=== PATIENT | female | born 1945 | race Hispanic/Latino ===

== ENCOUNTER 2018-05-21 14:39 | Inpatient (IN) | payer BC ==
[2018-05-21 14:58] VITALS: BMI 38.2
--- NOTE | 2018-05-21 18:23 | CP.PCM.HP ---
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 MRI brain showed small acute R posterolateral basal ganglia infarct , with chronic appearing bilateral basal nuclei and chronic white matter changes , no acute intracranial hemorrhage. HD stable NAD. ROS: per HPI all other systems reviewed and negative. Present on Admission - Present on Admission Any Indicators Present on Admission: No Past Patient History - Past Medical History & Family History Past Medical History?: Yes - Past Social History Smoking Status: Never Smoked - CARDIAC Hx Hypertension: Yes - PULMONARY Hx Chronic Obstructive Pulmonary Disease (COPD): Yes - NEUROLOGICAL Hx Neurological Disorder: Yes HX Cerebrovascular Accident: Yes (9 years ago) - MUSCULOSKELETAL/RHEUMATOLOGICAL Hx Falls: No - PSYCHIATRIC Hx Substance Use: No - SURGICAL HISTORY Hx Surgeries: Yes Hx Hysterectomy: Yes Meds Allergies/Adverse Reactions: Allergies Allergy/AdvReac Type Severity Reaction Status Date / Time lactose Allergy Verified 05/17/18 10:20 Penicillins Allergy Verified 05/17/18 10:20 Physical Exam - Constitutional Additional comments: Vitals Reviewed GEN: WDWN, alert, cooperative HEENT: NCAT, PERRL, EOMI HEART: RRR, +S1S2, NO MRG LUNG: CTAB, NO WRR ABD: soft, NT, ND, No HSM, No masses EXT: normal pedal pulses NEURO: awake, alert SKIN: warm, dry PSYCH: normal mood, normal affect Assessment & Plan - Assessment and Plan (Free Text) Plan: 73 year old female PMH CVA 2008, psychosis, COPD, HTN, presents from [facility] s/p 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 MRI brain showed small acute R posterolateral basal ganglia infarct , with chronic appearing bilateral basal nuclei and chronic white matter changes , no acute intracranial hemorrhage. HD stable NAD. CVA R basal ganglia Hx CVA - pt with residual L sided facial droop - cont asa, plavix, statin - PT/OT/speech - Neuro consult Dr. Prescott HTN - continue HTN control COPD - bronchodilators as necessary VTE lovenox
[2018-05-21] MEDS ORDERED: Albuterol-Ipratrop 3 mg / 0.5 (3 ml) UD IH PRN (18:24)
[2018-05-21] MEDS ORDERED: Home Med 1 UNIT PO PRN (20:48)
[2018-05-22 06:25] LABS: HEMOGLOBIN 12.4 g/dL (12.0-16.0); MEAN CELL VOLUME 94.8 fl (81.0-99.0); MEAN CORPUSCULAR HEMOGLOBIN 31.8 pg (27.0-31.0); MEAN CORPUSCULAR HGB CONC 33.5 g/dL (33.0-37.0); RBC 3.89 Mil/uL (3.80-5.20); RED CELL DISTRIBUTION WIDTH 14.2 % (11.5-14.5); WHITE BLOOD COUNT 6.7 K/uL (4.8-10.8)
[2018-05-22] MEDS: ALPRAZOLAM 0.5 MG PO SCH ×3 (06:33→13:43)
[2018-05-22 07:06] LABS: BLOOD UREA NITROGEN 14 mg/dl (7-17); CALCIUM 9.4 mg/dL (8.4-10.2); GFR NON-AFRICAN AMERICAN > 60
[2018-05-22] MEDS: Enoxaparin 40 mg Syringe SC SCH (08:08)
[2018-05-22] MEDS: Ergocalciferol 50,000 Intl Units Cap PO SCH (08:08)
[2018-05-22] MEDS: Magnesium Oxide 400 mg Tab UD PO SCH ×2 (10:25→17:16)
[2018-05-22] MEDS: DOXEPIN HCL 50 MG PO SCH (17:16)
[2018-05-22] MEDS: HALOPERIDOL 1 MG PO SCH (17:16)
[2018-05-22] MEDS: BENZTROPINE MESYLATE 1 MG PO SCH (17:16)
[2018-05-22] MEDS ORDERED: DOXEPIN HCL 50 MG PO SCH (18:00)
--- NOTE | 2018-05-22 20:58 | CP.PCM.CON ---
History of Present Illness - History of Present Illness History of Present Illness: Dr Solano PMR consultation on Geovnana Cross, born 1945 who has been admitted to [facility] for acute inpatient rehabilitation following a right CVA with left HP. There is some mild dysarthria as well. She is left hand dominant. She had ambulated with a [place] [employer]. Review of Systems - Constitutional Constitutional: absent: Anorexia, Chills - EENT Eyes: absent: Change in Vision Ears: absent: Decreased Hearing, Ear Discharge Nose/Mouth/Throat: absent: Nasal Congestion - Cardiovascular Cardiovascular: absent: Chest Pain - Respiratory Respiratory: absent: Cough, Dyspnea - Gastrointestinal Gastrointestinal: absent: Belching, Constipation - Musculoskeletal Musculoskeletal: Abnormal Gait. absent: Back Pain - Integumentary Integumentary: absent: Bleeding Lesions - Neurological Neurological: absent: Abnormal Movements, Confusion, Dizziness Past Patient History - Past Medical History & Family History Past Medical History?: Yes - Past Social History Smoking Status: Never Smoked Alcohol: None Drugs: Denies Home Situation {Lives}: With Family (elevator) - CARDIAC Hx Hypertension: Yes - PULMONARY Hx Chronic Obstructive Pulmonary Disease (COPD): Yes - NEUROLOGICAL Hx Neurological Disorder: Yes HX Cerebrovascular Accident: Yes (9 years ago) - MUSCULOSKELETAL/RHEUMATOLOGICAL Hx Falls: Yes - PSYCHIATRIC Hx Psychosis: Yes Hx Substance Use: No - SURGICAL HISTORY Hx Surgeries: Yes Hx Hysterectomy: Yes - ANESTHESIA Hx Anesthesia: Yes Hx Anesthesia Reactions: No Meds Allergies/Adverse Reactions: Allergies Allergy/AdvReac Type Severity Reaction Status Date / Time lactose Allergy DIARRHEA Verified 05/22/18 02:24 Penicillins Allergy RASH Verified 05/22/18 02:24 - Medications Medications: Current Medications Acetaminophen (Tylenol 325mg Tab) 325 mg PO Q6 PRN PRN Reason: PAIN 1-10 Last Admin: 05/22/18 10:25 Dose: 325 mg Albuterol/Ipratropium (Duoneb 3 Mg/0.5 Mg (3 Ml) Ud) 3 ml IH RQ6 PRN PRN Reason: Shortness of Breath Alprazolam (Xanax) 0.5 mg PO DAILY PRN PRN Reason: Anxiety Aspirin (Aspirin Chewable) 81 mg PO DAILY [facility] Last Admin: 05/22/18 08:07 Dose: 81 mg Atorvastatin Calcium (Lipitor) 40 mg PO HS [facility] Last Admin: 05/21/18 23:20 Dose: 40 mg Clopidogrel Bisulfate (Plavix) 75 mg PO DAILY [facility] Last Admin: 05/22/18 08:07 Dose: 75 mg Enoxaparin Sodium (Lovenox) 40 mg SC DAILY [facility] PRN Reason: Protocol Last Admin: 05/22/18 08:08 Dose: 40 mg Ergocalciferol (Drisdol 50,000 Intl Units Cap) 1 cap PO Q7D [facility] Last Admin: 05/22/18 08:08 Dose: 1 cap Home Med (Patient's Own Medication) 3 unit PO 1800 [facility] Last Admin: 05/22/18 17:16 Dose: 3 unit Home Med (Patient's Own Medication) 4 unit PO 1800 [facility] Last Admin: 05/22/18 17:16 Dose: 4 unit Home Med (Patient's Own Medication) 2 unit PO 1800 [facility] Last Admin: 05/22/18 17:16 Dose: 2 unit Home Med (Patient's Own Medication) 3 unit PO HS@2100 [facility] Last Admin: 05/22/18 20:21 Dose: Not Given Magnesium Oxide (Mag-Ox) 400 mg PO BID [facility] Last Admin: 05/22/18 17:16 Dose: 400 mg Senna/Docusate Sodium (Senokot S 50 Mg-8.6 Mg) 2 tab PO HS [facility] Physical Exam - Constitutional Appears: Non-toxic - Head Exam Head Exam: ATRAUMATIC, NORMAL INSPECTION, NORMOCEPHALIC - Eye Exam Eye Exam: EOMI - ENT Exam ENT Exam: Mucous Membranes Moist - Respiratory Exam Respiratory Exam: NORMAL BREATHING PATTERN - Cardiovascular Exam Cardiovascular Exam: REGULAR RHYTHM - GI/Abdominal Exam GI & Abdominal Exam: Distended. absent: Firm - Extremities Exam Extremities exam: Negative for: calf tenderness - Neurological Exam Neurological exam: Alert, Oriented x3 - Skin Skin Exam: Warm Results - Vital Signs Recent Vital Signs: Last Vital Signs Temp 97.2 F L 05/22/18 20:34 Pulse 87 05/22/18 20:34 Resp 20 05/22/18 20:34 BP 145/56 L 05/22/18 20:34 Pulse Ox 98 05/22/18 20:34 - Labs Result Diagrams: 05/22/18 05:20 05/22/18 05:20 Labs: Laboratory Results - last 24 hr 05/22/18 05/22/18 05/22/18 05:20 05:20 05:20 WBC 6.7 RBC 3.89 Hgb 12.4 Hct 36.8 MCV 94.8 MCH 31.8 H MCHC 33.5 RDW 14.2 Plt Count 237 Sodium 141 Potassium 4.6 Chloride 106 Carbon Dioxide 26 Anion Gap 14 BUN 14 Creatinine 0.7 Est GFR ( Amer) > 60 Est GFR (Non-Af Amer) > 60 Random Glucose 100 Hemoglobin A1c 5.6 Calcium 9.4 Assessment & Plan - Assessment and Plan (Free Text) Assessment: 73 year old left hand dominant female following a right CVA with left HP strength is fairly well preserved and has fair coordination as well functional limitations though with ambulation and mild dysarthria PT/OT to continue to help increase functional independence Team conference for d/c planning Pain: controlled Vascular: no evidence of DVT GI: No evidence of constipation or diarrhea Patient is an excellent acute rehabilitation candidate and will have focused speech, PT, OT and recreational therapy to help facilitate a safe and appropriate d/c plan Impairment code: 01.1
[2018-05-22] MEDS ORDERED: ALPRAZOLAM 0.5 MG PO SCH ×2 (21:00)
--- NOTE | 2018-05-22 21:09 | PCM.OPOC ---
Physiatry Overall Plan of Care - Overall Plan of Care Estimated Length of Stay in Weeks: 3 Rehab Impairment: Mobility, Gait, Speech, Balance, Coordination Etiologic Diagnosis: Cerebrovascular Accident Rehab/Medical Prognosis: Fair - Anticipated Interventions Physical Therapy:: Yes Occupational Therapy:: Yes Speech Therapy:: Yes Recreational Therapy:: Yes - Therapy Goals Bed Mobility: Supervision Ambulation: Supervision Functional Positional Changes:: Supervision - Discharge Plan Discharge Destination: Home
[2018-05-22] MEDS ORDERED: Docusate-Senna 50 mg-8.6 mg Tab PO SCH (22:00)
[2018-05-23] MEDS: Magnesium Oxide 400 mg Tab UD PO SCH ×2 (08:41→17:12)
[2018-05-23] MEDS: Enoxaparin 40 mg Syringe SC SCH (08:42)
[2018-05-23] MEDS: DOXEPIN HCL 50 MG PO SCH (17:12)
[2018-05-23] MEDS: BENZTROPINE MESYLATE 1 MG PO SCH (17:12)
[2018-05-23] MEDS: HALOPERIDOL 1 MG PO SCH (17:12)
[2018-05-23] MEDS: Docusate-Senna 50 mg-8.6 mg Tab PO SCH (20:20)
[2018-05-23] MEDS ORDERED: ALPRAZOLAM 0.5 MG PO SCH (21:00)
[2018-05-24] MEDS: Enoxaparin 40 mg Syringe SC SCH (08:43)
[2018-05-24] MEDS: Magnesium Oxide 400 mg Tab UD PO SCH ×2 (08:43→17:14)
[2018-05-24] MEDS: DOXEPIN HCL 50 MG PO SCH (17:14)
[2018-05-24] MEDS: HALOPERIDOL 1 MG PO SCH (17:14)
[2018-05-24] MEDS: BENZTROPINE MESYLATE 1 MG PO SCH (17:14)
--- NOTE | 2018-05-24 18:25 | CP.PCM.PN ---
Subjective - Date & Time of Evaluation Date of Evaluation: 05/24/18 Time of Evaluation: 11:50 - Subjective Subjective: Patient seen and examined. Claimed she was doing fine. Objective - Vital Signs/Intake and Output Vital Signs (last 24 hours): Temp Pulse Resp BP Pulse Ox 97.0 F L 86 18 125/59 L 93 L 05/24/18 07:48 05/24/18 07:48 05/24/18 07:48 05/24/18 07:48 05/24/18 07:48 - Medications Medications: Current Medications Acetaminophen (Tylenol 325mg Tab) 325 mg PO Q6 PRN PRN Reason: PAIN 1-10 Last Admin: 05/24/18 07:50 Dose: 325 mg Albuterol/Ipratropium (Duoneb 3 Mg/0.5 Mg (3 Ml) Ud) 3 ml IH RQ6 PRN PRN Reason: Shortness of Breath Alprazolam (Xanax) 0.5 mg PO DAILY PRN PRN Reason: Anxiety Aspirin (Aspirin Chewable) 81 mg PO DAILY [facility] Last Admin: 05/24/18 08:43 Dose: 81 mg Atorvastatin Calcium (Lipitor) 40 mg PO HS@2100 [facility] Last Admin: 05/23/18 20:35 Dose: 40 mg Clopidogrel Bisulfate (Plavix) 75 mg PO DAILY [facility] Last Admin: 05/24/18 08:43 Dose: 75 mg Enoxaparin Sodium (Lovenox) 40 mg SC DAILY [facility] PRN Reason: Protocol Last Admin: 05/24/18 08:43 Dose: 40 mg Ergocalciferol (Drisdol 50,000 Intl Units Cap) 1 cap PO Q7D [facility] Last Admin: 05/22/18 08:08 Dose: 1 cap Home Med (Patient's Own Medication) 3 unit PO 1800 [facility] Last Admin: 05/24/18 17:14 Dose: 3 unit Home Med (Patient's Own Medication) 4 unit PO 1800 [facility] Last Admin: 05/24/18 17:14 Dose: 4 unit Home Med (Patient's Own Medication) 2 unit PO 1800 [facility] Last Admin: 05/24/18 17:14 Dose: 2 unit Home Med (Patient's Own Medication) 3 unit PO HS@2000 [facility] Magnesium Oxide (Mag-Ox) 400 mg PO BID [facility] Last Admin: 05/24/18 17:14 Dose: 400 mg Senna/Docusate Sodium (Senokot S 50 Mg-8.6 Mg) 2 tab PO HS@2100 [facility] Last Admin: 05/23/18 20:20 Dose: 2 tab - Labs Labs: 05/22/18 05:20 05/22/18 05:20 - Constitutional Appears: No Acute Distress - Head Exam Head Exam: ATRAUMATIC - Eye Exam Eye Exam: absent: Scleral icterus - ENT Exam ENT Exam: Mucous Membranes Moist - Neck Exam Neck Exam: absent: Meningismus - Respiratory Exam Respiratory Exam: absent: Rales, Rhonchi, Wheezes, Respiratory Distress - Cardiovascular Exam Cardiovascular Exam: REGULAR RHYTHM, +S1, +S2 - GI/Abdominal Exam GI & Abdominal Exam: Soft. absent: Tenderness - Rectal Exam Rectal Exam: Deferred - Neurological Exam Neurological Exam: Alert, Oriented x3 - Psychiatric Exam Psychiatric exam: Normal Affect - Skin Skin Exam: Dry, Intact Assessment and Plan - Assessment and Plan (Free Text) Assessment: 73 yo female with history of CVA, psychosis, COPD and HTN was admitted at [facility] with Acute Right Basal Ganglia Infarct. The patient was transferred to Acute Rehab for therapy with residual left facial droop. 1. Right Basal Ganglia CVA continue ASA, Plavix, statin continue PT/OT/ST Neuro consult with Dr. Prescott 2. HTN BP stable without meds 3. COPD Duoneb q 4hrs prn 4. DVT prophylaxis Lovenox 40mg SC daily
[2018-05-24] MEDS: ALPRAZOLAM 0.5 MG PO SCH (20:22)
[2018-05-24] MEDS: Docusate-Senna 50 mg-8.6 mg Tab PO SCH (20:23)
[2018-05-25 07:24] LABS: HEMOGLOBIN 12.4 g/dL (12.0-16.0); MEAN CELL VOLUME 95.1 fl (81.0-99.0); MEAN CORPUSCULAR HEMOGLOBIN 31.1 pg (27.0-31.0); MEAN CORPUSCULAR HGB CONC 32.7 g/dL (33.0-37.0); RBC 3.98 Mil/uL (3.80-5.20); RED CELL DISTRIBUTION WIDTH 13.7 % (11.5-14.5); WHITE BLOOD COUNT 6.6 K/uL (4.8-10.8)
[2018-05-25 07:51] LABS: BLOOD UREA NITROGEN 15 mg/dl (7-17); CALCIUM 9.6 mg/dL (8.4-10.2); GFR NON-AFRICAN AMERICAN > 60
[2018-05-25] MEDS: Enoxaparin 40 mg Syringe SC SCH (08:28)
[2018-05-25] MEDS: Magnesium Oxide 400 mg Tab UD PO SCH ×2 (08:29→17:33)
[2018-05-25] MEDS: DOXEPIN HCL 50 MG PO SCH (17:34)
[2018-05-25] MEDS: BENZTROPINE MESYLATE 1 MG PO SCH (17:34)
[2018-05-25] MEDS: HALOPERIDOL 1 MG PO SCH (17:35)
[2018-05-25] MEDS: ALPRAZOLAM 0.5 MG PO SCH (20:03)
[2018-05-25] MEDS: Docusate-Senna 50 mg-8.6 mg Tab PO SCH (20:04)
[2018-05-26] MEDS: Magnesium Oxide 400 mg Tab UD PO SCH ×2 (08:41→17:08)
[2018-05-26] MEDS: Enoxaparin 40 mg Syringe SC SCH (08:41)
[2018-05-26] MEDS: Magnesium Hydroxide Susp 30 ml UD PO PRN (12:28)
[2018-05-26] MEDS: HALOPERIDOL 1 MG PO SCH (17:08)
[2018-05-26] MEDS: DOXEPIN HCL 50 MG PO SCH (17:08)
[2018-05-26] MEDS: BENZTROPINE MESYLATE 1 MG PO SCH (17:08)
[2018-05-26] MEDS: Docusate-Senna 50 mg-8.6 mg Tab PO SCH (20:09)
[2018-05-26] MEDS: ALPRAZOLAM 0.5 MG PO SCH (20:09)
[2018-05-27] MEDS: Magnesium Oxide 400 mg Tab UD PO SCH ×2 (09:04→17:17)
[2018-05-27] MEDS: Enoxaparin 40 mg Syringe SC SCH (09:04)
--- NOTE | 2018-05-27 10:06 | CP.PCM.CON ---
History of Present Illness - History of Present Illness History of Present Illness: Ms. Cross is a 73 year old female PMH CVA 2008, psychosis, COPD, HTN, presents from [facility] s/p 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 MRI brain showed small acute R posterolateral basal ganglia infarct, with chronic appearing bilateral basal nuclei and chronic white matter changes, no acute intracranial hemorrhage. She was transferred to acute rehab for further therapies. Currently, she is alert, oriented complains of nausea but denies any vomiting. She is able to consume her breakfast, had a bowel movement yesterday, abdomen is non tender, normoactive. Review of Systems - Review of Systems All systems: reviewed and no additional remarkable complaints except (left side weakness, slight slurred vision) Past Patient History - Past Medical History & Family History Past Medical History?: Yes - Past Social History Smoking Status: Never Smoked Alcohol: None Drugs: Denies Home Situation {Lives}: With Family (elevator) - CARDIAC Hx Hypertension: Yes - PULMONARY Hx Chronic Obstructive Pulmonary Disease (COPD): Yes - NEUROLOGICAL Hx Neurological Disorder: Yes HX Cerebrovascular Accident: Yes (9 years ago) - MUSCULOSKELETAL/RHEUMATOLOGICAL Hx Falls: Yes - PSYCHIATRIC Hx Psychosis: Yes Hx Substance Use: No - SURGICAL HISTORY Hx Surgeries: Yes Hx Hysterectomy: Yes - ANESTHESIA Hx Anesthesia: Yes Hx Anesthesia Reactions: No Meds Allergies/Adverse Reactions: Allergies Allergy/AdvReac Type Severity Reaction Status Date / Time Penicillins Allergy RASH Verified 05/22/18 02:24 - Medications Medications: Current Medications Acetaminophen (Tylenol 325mg Tab) 325 mg PO Q6 PRN PRN Reason: PAIN 1-10 Last Admin: 05/26/18 09:22 Dose: 325 mg Albuterol/Ipratropium (Duoneb 3 Mg/0.5 Mg (3 Ml) Ud) 3 ml IH RQ6 PRN PRN Reason: Shortness of Breath Alprazolam (Xanax) 0.5 mg PO DAILY PRN PRN Reason: Anxiety Aspirin (Aspirin Chewable) 81 mg PO DAILY [facility] Last Admin: 05/27/18 09:04 Dose: 81 mg Atorvastatin Calcium (Lipitor) 40 mg PO HS@2100 [facility] Last Admin: 05/26/18 20:09 Dose: 40 mg Bisacodyl (Dulcolax) 10 mg [place] DAILY PRN PRN Reason: Constipation Clopidogrel Bisulfate (Plavix) 75 mg PO DAILY [facility] Last Admin: 05/27/18 09:06 Dose: 75 mg Enoxaparin Sodium (Lovenox) 40 mg SC DAILY [facility] PRN Reason: Protocol Last Admin: 05/27/18 09:04 Dose: 40 mg Ergocalciferol (Drisdol 50,000 Intl Units Cap) 1 cap PO Q7D [facility] Last Admin: 05/22/18 08:08 Dose: 1 cap Famotidine (Pepcid) 20 mg PO HS@2100 [facility] Last Admin: 05/26/18 20:09 Dose: 20 mg Home Med (Patient's Own Medication) 3 unit PO 1800 [facility] Last Admin: 05/26/18 17:08 Dose: 3 unit Home Med (Patient's Own Medication) 4 unit PO 1800 [facility] Last Admin: 05/26/18 17:08 Dose: 4 unit Home Med (Patient's Own Medication) 2 unit PO 1800 [facility] Last Admin: 05/26/18 17:08 Dose: 2 unit Home Med (Patient's Own Medication) 3 unit PO HS@2000 [facility] Last Admin: 05/26/18 20:09 Dose: 3 unit Magnesium Hydroxide (Milk Of Magnesia) 30 ml PO DAILY PRN PRN Reason: Constipation Last Admin: 05/26/18 12:28 Dose: 30 ml Magnesium Oxide (Mag-Ox) 400 mg PO BID [facility] Last Admin: 05/27/18 09:04 Dose: 400 mg Senna/Docusate Sodium (Senokot S 50 Mg-8.6 Mg) 2 tab PO HS@2100 [facility] Last Admin: 05/26/18 20:09 Dose: 2 tab Physical Exam - Constitutional Appears: No Acute Distress - Head Exam Head Exam: NORMAL INSPECTION - Eye Exam Pupil Exam: PERRL - ENT Exam ENT Exam: Mucous Membranes Moist, Normal Exam - Neck Exam Neck exam: Positive for: Normal Inspection - Respiratory Exam Respiratory Exam: Clear to Auscultation Bilateral, NORMAL BREATHING PATTERN - Cardiovascular Exam Cardiovascular Exam: REGULAR RHYTHM, +S1, +S2 - GI/Abdominal Exam GI & Abdominal Exam: Normal Bowel Sounds, Soft - Extremities Exam Extremities exam: Positive for: normal inspection - Back Exam Back exam: CVA tenderness (L) - Neurological Exam Neurological exam: Alert, Oriented x3 - Expanded Neurological Exam Expanded Patient oriented to: person, place, time Speech: Slurred Speech Cranial nerves: EOM's Intact: Normal, Facial Palsey w/Forehead Movement: Normal , Facial Sensation: Normal, Gag Reflex: Normal, Nystagmus: Normal, Tongue Deviation: Normal Cerebellar Function: Finger to Nose: Normal, Heel to [place]: Normal Upper motor neuron: Kel Neglect: Normal, Pronator Drift: Abnormal Left, Sensory Extinction: Normal Sensory exam: Lower Extremity 2 Point Discrimination: Normal, Lower Extremity Light Touch: Normal, Lower Extremity Pin Prick: Normal, Lower Extremity Temperature: Normal, Upper Extremity 2 Point Discrimination: Normal, Upper Extremity Light Touch: Normal, Upper Extremity Pin Prick: Normal, Upper Extremity Temperature: Normal Neuro motor strength exam: Left Upper Extremity: 3, Right Upper Extremity: 4, Left Lower Extremity: 3, Right Lower Extremity: 4 Results - Vital Signs Recent Vital Signs: Last Vital Signs Temp 96.8 F L 05/27/18 07:51 Pulse 80 05/27/18 07:51 Resp 20 05/27/18 07:51 BP 124/61 05/27/18 07:51 Pulse Ox 97 05/27/18 07:51 - Labs Result Diagrams: 05/25/18 05:30 05/25/18 05:30 Assessment & Plan (1) CVA (cerebral vascular accident) Assessment and Plan: 73 year old female PMH CVA 2008, psychosis, COPD, HTN, presents from [facility] s/p 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 MRI brain showed small acute R posterolateral basal ganglia infarct , with chronic appearing bilateral basal nuclei and chronic white matter changes , no acute intracranial hemorrhage. Case discussed with DR. Burkett, recommend the following 1. PT/ OT/ ST eval and treat 2. Continue aspirin 81 mg PO daily , plavix 75 mg PO daily 3. keep LDL < 70, lipitor 40 mg PO q HS. 4. Blood pressure, hydration, and glycemic control 5. Case management consult. Thank you Status: Chronic
--- NOTE | 2018-05-27 13:06 | PSY.TMCNF ---
Nursing - Vital Signs Vital Signs (Last 8 hours): Vital Signs 05/27/18 05/27/18 07:51 11:26 Temperature 96.8 F L 96.8 F L Pulse Rate 80 80 Respiratory 20 20 Rate Blood Pressure 124/61 124/61 O2 Sat by Pulse 97 Oximetry Pain: 0 - Precautions: Precautions: Fall Prevention - Medications/Other Issues Comment: COMPLAINING OF NAUSEA THIS MORNING,NO VOMITING. DR. COOK AWARE. - Consults Comment: DR. DUGAN, DR. GUTHRIE - Toileting Toileting: Supervision - Bladder Management Bladder Pattern: Normal Voiding Method: Toilet Bladder Management: Supervision Frequency of Accidents: 0 - Bowel Management Bowel Pattern: Constipated Comment: (+) IBS-CONTIPATION TYPE, ALREADY IN [place] AT HS AND MOM PRN Bowel Management: Supervision Frequency of Accidents: 0 - Transfers Transfers: Supervision - ADL's ADL's: Supervision - Patient/Family Teaching Comments: CARE POST CVA AND SAFETY PRECAUTIONS - Goals/Time Frame Comments: PER MULTIDISCIPLINARY CARE PLAN AND GOALS - Provider Provider: ORIANA MURON RN CRRN Physical Therapy - Bed Mobility Bed Mobility: Verbal Cues, Contact Guard - Transfers Wheelchair to Mat: Verbal Cues, Contact Guard Sit to Stand: Supervision, Verbal Cues, Contact Guard - Ambulation Level of Assistance: Supervision, Verbal Cues, Contact Guard Distance (ft.): 150 Assistive Devices: Single point cane, Rolling Walker Comment: Supervision with RW, CGA with SPC - Stair Negotiation Stairs: Level of Assistance: Verbal Cues, Contact Guard Number of Stairs: 12 Handrails: Right Stairs: Assistive Devices: Single point cane - Standing Balance Static Stand: Supervision Dynamic Stand: Contact Guard Assist - Pain Pain (assessed during therapy session): 0 - Insight/Carryover Insight/Carryover: Good - Patient/Family Education Comment: CVA recovery, safety, d/c planning - Assessment/Plan Assessment: Geovanna Cross presents with: 1) mild dysarthria characterized by imprecise articulation at the sentence level negatively impacting speech intelligibility at times; and 2) mild cognitive-linguistic deficits as evidenced by decreased short term recall and thought organization. Pt would benefit from skilled ST tx 3-5x week to improve deficits in these areas. [ End ] - Goals Timeframe: 2 weeks Goals: Sit < > supine mod I. Sit < > stand mod I with AD. Pt will ambulate 200 ft mod I with AD. Pt will ascend/descend 2 flights of stairs mod I with handrail; - Provider License Number: [id number] Occupational Therapy - Arousal/Attention/Orientation Level of Consciousness: Awake, Alert Patient Orientation: Person, Place, Time - ADL/IADL Self Feeding: Set-up Help Grooming: Set-up Help Bathing-Upper Extremity: Supervision Bathing-Lower Extremity: Supervision, Contact Guard Dressing-Upper Extremity: Supervision Dressing-Lower Extremity: Contact Guard - Sitting Balance Static Sitting: Independent without upper extremity support Dynamic Sitting: Reaches across midline, Reaches out of base of support, Reaches within base of support - Transfers Wheelchair to Bed Transfers: Contact Guard Toilet Transfers: Contact Guard Tub Transfers: Contact Guard - Wheelchair Management Level of Assistance: Supervision - Upper Extremity Status Right Upper Extremity Comment: WFLs Left Upper Extremity Comment: WFLs - Pain Pain (assessed during therapy session): 0 - Insight/Carryover Insight/Carryover: Good - Patient/Family Education Comment: CVA recovery, safety, d/c planning - Assessment/Plan Assessment: Geovanna Cross presents with: 1) mild dysarthria characterized by imprecise articulation at the sentence level negatively impacting speech intelligibility at times; and 2) mild cognitive-linguistic deficits as evidenced by decreased short term recall and thought organization. Pt would benefit from skilled ST tx 3-5x week to improve deficits in these areas. [ End ] - Goals Timeframe: 2 weeks Goals: Sit < > supine mod I. Sit < > stand mod I with AD. Pt will ambulate 200 ft mod I with AD. Pt will ascend/descend 2 flights of stairs mod I with handrail; - Provider Therapist: jared Speech Therapy - Consult Information Patient on Program: Yes Medical Diagnosis: CVA Treatment Diagnosis: mild dysarthria. mild cognitive-linguistic deficits - Assessment Memory Impairment: Mild Speech/Articulation Impairment: Mild - Plan Assessment: Geovanna Cross presents with: 1) mild dysarthria characterized by imprecise articulation at the sentence level negatively impacting speech intelligibility at times; and 2) mild cognitive-linguistic deficits as evidenced by decreased short term recall and thought organization. Pt would benefit from skilled ST tx 3-5x week to improve deficits in these areas. [ End ] Plan: Continue Speech/Language Therapy Frequency: 3-5 times per week Duration: 1 week Goals/Timeframe: As per progress note dated 05/27/18 Recommendations: Continue speech-language tx 3-5x/week. - Provider Therapist: Sabi Gross License Number: [id number] Recreational Therapy - Participation Participation: Participates in Individual and/or Group Sessions - Attendance Attendance: 3-5 times per week - Activities Leisure Activities: Cards and Games - Socialization Level of Socialization: Initiates/interacts freely with care givers and peer - Diversional Time Diversional Time: television, has word searches in room - Assessment Assessment/Plan: Geovanna Cross presents with: 1) mild dysarthria characterized by imprecise articulation at the sentence level negatively impacting speech intelligibility at times; and 2) mild cognitive-linguistic deficits as evidenced by decreased short term recall and thought organization. Pt would benefit from skilled ST tx 3-5x week to improve deficits in these areas. [ End ] - Provider Therapist: Shea Toney, [employer] #[id number] Nutrition - Current Diet Current Diet/ Supplement/ Feedings: Heart healthy diet - Appetite Percent Meal Consumed: 75-100% - Comments Comments: CARE POST CVA AND SAFETY PRECAUTIONS - Assessment/Goals/Time Frame Assessment/Goals/Time Frame: COMPLAINING OF NAUSEA THIS MORNING,NO VOMITING. DR. JOEY CODY. - Provider Provider: Latricia Rothman RD Case Management - Discharge Plan Discharge Plan: Home with significant other/family Rehabilitation Plan - Treatment Plan Treatment Plan: Physical Therapy, Occupational Therapy, Speech, Dietary, Patient /Family Education - Recommendation Recommendation: Physical Therapy, Occupational Therapy, Speech, Dietary, Patient /Family Education - Discharge Plan Discharge to: Home (Dc 2)
--- NOTE | 2018-05-27 13:52 | CP.PCM.PN ---
Subjective - Date & Time of Evaluation Date of Evaluation: 05/25/18 Time of Evaluation: 12:00 - Subjective Subjective: no acute complaints at present Objective - Vital Signs/Intake and Output Vital Signs (last 24 hours): Temp Pulse Resp BP Pulse Ox 96.8 F L 80 20 124/61 97 05/27/18 11:26 05/27/18 11:05/27/18 11:05/27/18 11:05/27/18 07:51 - Medications Medications: Current Medications Acetaminophen (Tylenol 325mg Tab) 325 mg PO Q6 PRN PRN Reason: PAIN 1-10 Last Admin: 05/26/18 09:22 Dose: 325 mg Albuterol/Ipratropium (Duoneb 3 Mg/0.5 Mg (3 Ml) Ud) 3 ml IH RQ6 PRN PRN Reason: Shortness of Breath Alprazolam (Xanax) 0.5 mg PO DAILY PRN PRN Reason: Anxiety Aspirin (Aspirin Chewable) 81 mg PO DAILY [facility] Last Admin: 05/27/18 09:04 Dose: 81 mg Atorvastatin Calcium (Lipitor) 40 mg PO HS@2100 [facility] Last Admin: 05/26/18 20:09 Dose: 40 mg Bisacodyl (Dulcolax) 10 mg [place] DAILY PRN PRN Reason: Constipation Clopidogrel Bisulfate (Plavix) 75 mg PO DAILY [facility] Last Admin: 05/27/18 09:06 Dose: 75 mg Enoxaparin Sodium (Lovenox) 40 mg SC DAILY [facility] PRN Reason: Protocol Last Admin: 05/27/18 09:04 Dose: 40 mg Ergocalciferol (Drisdol 50,000 Intl Units Cap) 1 cap PO Q7D [facility] Last Admin: 05/22/18 08:08 Dose: 1 cap Famotidine (Pepcid) 20 mg PO HS@2100 [facility] Last Admin: 05/26/18 20:09 Dose: 20 mg Home Med (Patient's Own Medication) 3 unit PO 1800 [facility] Last Admin: 05/26/18 17:08 Dose: 3 unit Home Med (Patient's Own Medication) 4 unit PO 1800 [facility] Last Admin: 05/26/18 17:08 Dose: 4 unit Home Med (Patient's Own Medication) 2 unit PO 1800 [facility] Last Admin: 05/26/18 17:08 Dose: 2 unit Home Med (Patient's Own Medication) 3 unit PO HS@1999 [facility] Last Admin: 05/26/18 20:09 Dose: 3 unit Magnesium Hydroxide (Milk Of Magnesia) 30 ml PO DAILY PRN PRN Reason: Constipation Last Admin: 05/26/18 12:28 Dose: 30 ml Magnesium Oxide (Mag-Ox) 400 mg PO BID [facility] Last Admin: 05/27/18 09:04 Dose: 400 mg Senna/Docusate Sodium (Senokot S 50 Mg-8.6 Mg) 2 tab PO HS@2099 [facility] Last Admin: 05/26/18 20:09 Dose: 2 tab - Labs Labs: 05/25/18 05:30 05/25/18 05:30 - Head Exam Head Exam: ATRAUMATIC, NORMAL INSPECTION, NORMOCEPHALIC - Eye Exam Eye Exam: EOMI, Normal appearance, PERRL Pupil Exam: NORMAL ACCOMODATION - ENT Exam ENT Exam: Mucous Membranes Moist, Normal Exam - Neck Exam Neck Exam: Normal Inspection - Respiratory Exam Respiratory Exam: Clear to Ausculation Bilateral, NORMAL BREATHING PATTERN - Cardiovascular Exam Cardiovascular Exam: REGULAR RHYTHM - GI/Abdominal Exam GI & Abdominal Exam: Soft, Normal Bowel Sounds - Rectal Exam Rectal Exam: NORMAL INSPECTION - Exam External exam: NORMAL EXTERNAL EXAM - Extremities Exam Extremities Exam: Full ROM, Normal Capillary Refill - Back Exam Back Exam: NORMAL INSPECTION - Neurological Exam Neurological Exam: Alert Neuro motor strength exam: Left Upper Extremity: 3, Right Upper Extremity: 3, Left Lower Extremity: 3, Right Lower Extremity: 3 - Psychiatric Exam Psychiatric exam: Normal Affect, Normal Mood - Skin Skin Exam: Normal Color Assessment and Plan (1) CVA (cerebral vascular accident) Assessment & Plan: covering for Dr walters, PT, OT rec and speech therapy Status: Chronic (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
--- NOTE | 2018-05-27 14:00 | CP.PCM.PN ---
Subjective - Date & Time of Evaluation Date of Evaluation: 05/27/18 Time of Evaluation: 12:10 - Subjective Subjective: no acute neck or back pain, feels she is getting better Objective - Vital Signs/Intake and Output Vital Signs (last 24 hours): Temp Pulse Resp BP Pulse Ox 96.8 F L 80 20 124/61 97 05/27/18 11:26 05/27/18 11:26 05/27/18 11:05/27/18 11:05/27/18 07:51 - Medications Medications: Current Medications Acetaminophen (Tylenol 325mg Tab) 325 mg PO Q6 PRN PRN Reason: PAIN 1-10 Last Admin: 05/26/18 09:22 Dose: 325 mg Albuterol/Ipratropium (Duoneb 3 Mg/0.5 Mg (3 Ml) Ud) 3 ml IH RQ6 PRN PRN Reason: Shortness of Breath Alprazolam (Xanax) 0.5 mg PO DAILY PRN PRN Reason: Anxiety Aspirin (Aspirin Chewable) 81 mg PO DAILY [facility] Last Admin: 05/27/18 09:04 Dose: 81 mg Atorvastatin Calcium (Lipitor) 40 mg PO HS@2100 [facility] Last Admin: 05/26/18 20:09 Dose: 40 mg Bisacodyl (Dulcolax) 10 mg [place] DAILY PRN PRN Reason: Constipation Clopidogrel Bisulfate (Plavix) 75 mg PO DAILY [facility] Last Admin: 05/27/18 09:06 Dose: 75 mg Enoxaparin Sodium (Lovenox) 40 mg SC DAILY [facility] PRN Reason: Protocol Last Admin: 05/27/18 09:04 Dose: 40 mg Ergocalciferol (Drisdol 50,000 Intl Units Cap) 1 cap PO Q7D [facility] Last Admin: 05/22/18 08:08 Dose: 1 cap Famotidine (Pepcid) 20 mg PO HS@2100 [facility] Last Admin: 05/26/18 20:09 Dose: 20 mg Home Med (Patient's Own Medication) 3 unit PO 1800 [facility] Last Admin: 05/26/18 17:08 Dose: 3 unit Home Med (Patient's Own Medication) 4 unit PO 1800 [facility] Last Admin: 05/26/18 17:08 Dose: 4 unit Home Med (Patient's Own Medication) 2 unit PO 1800 [facility] Last Admin: 05/26/18 17:08 Dose: 2 unit Home Med (Patient's Own Medication) 3 unit PO HS@1999 [facility] Last Admin: 05/26/18 20:09 Dose: 3 unit Magnesium Hydroxide (Milk Of Magnesia) 30 ml PO DAILY PRN PRN Reason: Constipation Last Admin: 05/26/18 12:28 Dose: 30 ml Magnesium Oxide (Mag-Ox) 400 mg PO BID [facility] Last Admin: 05/27/18 09:04 Dose: 400 mg Senna/Docusate Sodium (Senokot S 50 Mg-8.6 Mg) 2 tab PO HS@2099 [facility] Last Admin: 05/26/18 20:09 Dose: 2 tab - Labs Labs: 05/25/18 05:30 05/25/18 05:30 - Head Exam Head Exam: ATRAUMATIC, NORMAL INSPECTION, NORMOCEPHALIC - Eye Exam Eye Exam: EOMI, Normal appearance, PERRL Pupil Exam: NORMAL ACCOMODATION - ENT Exam ENT Exam: Mucous Membranes Moist, Normal Exam - Neck Exam Neck Exam: Full ROM, Normal Inspection - Respiratory Exam Respiratory Exam: Clear to Ausculation Bilateral, NORMAL BREATHING PATTERN - Cardiovascular Exam Cardiovascular Exam: REGULAR RHYTHM - GI/Abdominal Exam GI & Abdominal Exam: Soft, Normal Bowel Sounds - Rectal Exam Rectal Exam: NORMAL INSPECTION - Exam External exam: NORMAL EXTERNAL EXAM - Extremities Exam Extremities Exam: Normal Inspection - Back Exam Back Exam: NORMAL INSPECTION - Neurological Exam Neurological Exam: Alert, Awake Neuro motor strength exam: Left Upper Extremity: 3, Right Upper Extremity: 3, Left Lower Extremity: 3, Right Lower Extremity: 3 - Psychiatric Exam Psychiatric exam: Normal Affect, Normal Mood - Skin Skin Exam: Dry, Intact, Normal Color Assessment and Plan (1) CVA (cerebral vascular accident) Assessment & Plan: status post team conference, pt ot , rec therapy Dc for SET [address] waltesr CG to MIN assit . 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
--- NOTE | 2018-05-27 14:28 | CP.PCM.PN ---
Subjective - Date & Time of Evaluation Date of Evaluation: 05/27/18 Time of Evaluation: 11:00 - Subjective Subjective: Patient seen and examined at bedside. Reports some nausea but no vomiting. States she did not sleep well last night. Otherwise no new events overnight. Tolerating PT/OT well. Objective - Vital Signs/Intake and Output Vital Signs (last 24 hours): Temp Pulse Resp BP Pulse Ox 96.8 F L 80 20 124/61 97 05/27/18 07:51 05/27/18 07:51 05/27/18 07:51 05/27/18 07:51 05/27/18 07:51 - Medications Medications: Current Medications Acetaminophen (Tylenol 325mg Tab) 325 mg PO Q6 PRN PRN Reason: PAIN 1-10 Last Admin: 05/26/18 09:22 Dose: 325 mg Albuterol/Ipratropium (Duoneb 3 Mg/0.5 Mg (3 Ml) Ud) 3 ml IH RQ6 PRN PRN Reason: Shortness of Breath Alprazolam (Xanax) 0.5 mg PO DAILY PRN PRN Reason: Anxiety Aspirin (Aspirin Chewable) 81 mg PO DAILY [facility] Last Admin: 05/27/18 09:04 Dose: 81 mg Atorvastatin Calcium (Lipitor) 40 mg PO HS@2100 [facility] Last Admin: 05/26/18 20:09 Dose: 40 mg Bisacodyl (Dulcolax) 10 mg IN DAILY PRN PRN Reason: Constipation Clopidogrel Bisulfate (Plavix) 75 mg PO DAILY [facility] Last Admin: 05/27/18 09:06 Dose: 75 mg Enoxaparin Sodium (Lovenox) 40 mg SC DAILY [facility] PRN Reason: Protocol Last Admin: 05/27/18 09:04 Dose: 40 mg Ergocalciferol (Drisdol 50,000 Intl Units Cap) 1 cap PO Q7D [facility] Last Admin: 05/22/18 08:08 Dose: 1 cap Famotidine (Pepcid) 20 mg PO HS@2100 [facility] Last Admin: 05/26/18 20:09 Dose: 20 mg Home Med (Patient's Own Medication) 3 unit PO 1800 [facility] Last Admin: 05/26/18 17:08 Dose: 3 unit Home Med (Patient's Own Medication) 4 unit PO 1800 [facility] Last Admin: 05/26/18 17:08 Dose: 4 unit Home Med (Patient's Own Medication) 2 unit PO 1800 [facility] Last Admin: 05/26/18 17:08 Dose: 2 unit Home Med (Patient's Own Medication) 3 unit PO HS@2000 [facility] Last Admin: 05/26/18 20:09 Dose: 3 unit Magnesium Hydroxide (Milk Of Magnesia) 30 ml PO DAILY PRN PRN Reason: Constipation Last Admin: 05/26/18 12:28 Dose: 30 ml Magnesium Oxide (Mag-Ox) 400 mg PO BID [facility] Last Admin: 05/27/18 09:04 Dose: 400 mg Senna/Docusate Sodium (Senokot S 50 Mg-8.6 Mg) 2 tab PO HS@2100 [facility] Last Admin: 05/26/18 20:09 Dose: 2 tab - Labs Labs: 05/25/18 05:30 05/25/18 05:30 - Additional Findings Additional findings: Physical exam: Constitutional- cooperative, awake, alert Head- NCAT, PERRL Eye- PERRL, EOMI ENT- normal exam, MMM. + left facial droop, slurred speech Neck- normal inspection, supple, no JVD Respiratory- CTAB, no wheezes rales rhonchi Cardiovascular- RRR, +S1, +S2 no MRG GI/Abdominal- normal bowel sounds, soft, no mass, no hsm Skin- warm, dry Extremities Exam- 3/5 muscle strength upper and lower left extremities, 4/5 muscle strength upper and lower right extremities, no clubbing, cyanosis, or edema Neurological Exam- alert, awake, oriented Psych- normal mood, normal affect
[2018-05-27] MEDS: HALOPERIDOL 1 MG PO SCH (17:16)
[2018-05-27] MEDS: DOXEPIN HCL 50 MG PO SCH (17:17)
[2018-05-27] MEDS: BENZTROPINE MESYLATE 1 MG PO SCH (17:17)
[2018-05-27] MEDS: ALPRAZOLAM 0.5 MG PO SCH (20:36)
[2018-05-27] MEDS: Docusate-Senna 50 mg-8.6 mg Tab PO SCH (20:36)
[2018-05-28] MEDS: Enoxaparin 40 mg Syringe SC SCH (08:30)
[2018-05-28] MEDS: Magnesium Oxide 400 mg Tab UD PO SCH ×2 (08:31→17:50)
[2018-05-28 10:43] LABS: HEMOGLOBIN 12.2 g/dL (12.0-16.0); MEAN CELL VOLUME 94.5 fl (81.0-99.0); MEAN CORPUSCULAR HEMOGLOBIN 31.4 pg (27.0-31.0); MEAN CORPUSCULAR HGB CONC 33.2 g/dL (33.0-37.0); RBC 3.88 Mil/uL (3.80-5.20); WHITE BLOOD COUNT 8.8 K/uL (4.8-10.8)
[2018-05-28 10:52] LABS: BLOOD UREA NITROGEN 14 mg/dl (7-17); CALCIUM 9.4 mg/dL (8.4-10.2); GFR NON-AFRICAN AMERICAN > 60
[2018-05-28] MEDS: HALOPERIDOL 1 MG PO SCH (17:49)
[2018-05-28] MEDS: DOXEPIN HCL 50 MG PO SCH (17:50)
[2018-05-28] MEDS: BENZTROPINE MESYLATE 1 MG PO SCH (17:50)
[2018-05-28] MEDS: ALPRAZOLAM 0.5 MG PO SCH (20:11)
[2018-05-28] MEDS: Docusate-Senna 50 mg-8.6 mg Tab PO SCH (20:12)
[2018-05-29] MEDS: Enoxaparin 40 mg Syringe SC SCH (08:07)
[2018-05-29] MEDS: Ergocalciferol 50,000 Intl Units Cap PO SCH (08:07)
[2018-05-29] MEDS: Magnesium Oxide 400 mg Tab UD PO SCH ×2 (08:08→17:56)
--- NOTE | 2018-05-29 09:23 | CP.PCM.PN ---
Subjective - Date & Time of Evaluation Date of Evaluation: 05/29/18 Time of Evaluation: 09:21 - Subjective Subjective: Ms. Cross was seen and examined at the bedside. She is alert oriented with episode of forgetfulness. She is aware of her chair alarm. She denies any headache, dizziness, lightheadedness, nausea, or vomiting. She is able to feed herself, follow simple commands. There were no untoward events overnight. Objective - Vital Signs/Intake and Output Vital Signs (last 24 hours): Temp Pulse Resp BP Pulse Ox 97.9 F 88 20 122/70 97 05/29/18 08:25 05/29/18 08:25 05/29/18 08:25 05/29/18 08:25 05/29/18 08:25 - Medications Medications: Current Medications Acetaminophen (Tylenol 325mg Tab) 325 mg PO Q6 PRN PRN Reason: PAIN 1-10 Last Admin: 05/27/18 17:16 Dose: 325 mg Albuterol/Ipratropium (Duoneb 3 Mg/0.5 Mg (3 Ml) Ud) 3 ml IH RQ6 PRN PRN Reason: Shortness of Breath Alprazolam (Xanax) 0.5 mg PO DAILY PRN PRN Reason: Anxiety Aspirin (Aspirin Chewable) 81 mg PO DAILY [facility] Last Admin: 05/29/18 08:08 Dose: 81 mg Atorvastatin Calcium (Lipitor) 40 mg PO HS@2100 [facility] Last Admin: 05/28/18 20:12 Dose: 40 mg Bisacodyl (Dulcolax) 10 mg [place] DAILY PRN PRN Reason: Constipation Clopidogrel Bisulfate (Plavix) 75 mg PO DAILY [facility] Last Admin: 05/29/18 08:07 Dose: 75 mg Enoxaparin Sodium (Lovenox) 40 mg SC DAILY [facility] PRN Reason: Protocol Last Admin: 05/29/18 08:07 Dose: 40 mg Ergocalciferol (Drisdol 50,000 Intl Units Cap) 1 cap PO Q7D [facility] Last Admin: 05/29/18 08:07 Dose: 1 cap Famotidine (Pepcid) 20 mg PO HS@2100 [facility] Last Admin: 05/28/18 20:12 Dose: 20 mg Home Med (Patient's Own Medication) 3 unit PO 1800 [facility] Last Admin: 05/28/18 17:50 Dose: 3 unit Home Med (Patient's Own Medication) 4 unit PO 1800 [facility] Last Admin: 05/28/18 17:49 Dose: 4 unit Home Med (Patient's Own Medication) 2 unit PO 1800 [facility] Last Admin: 05/28/18 17:50 Dose: 2 unit Home Med (Patient's Own Medication) 3 unit PO HS@2000 [facility] Last Admin: 05/28/18 20:11 Dose: 3 unit Magnesium Hydroxide (Milk Of Magnesia) 30 ml PO DAILY PRN PRN Reason: Constipation Last Admin: 05/26/18 12:28 Dose: 30 ml Magnesium Oxide (Mag-Ox) 400 mg PO BID [facility] Last Admin: 05/29/18 08:08 Dose: 400 mg Ondansetron HCl (Zofran Odt) 4 mg PO Q8H PRN PRN Reason: Nausea/Vomiting Senna/Docusate Sodium (Senokot S 50 Mg-8.6 Mg) 2 tab PO HS@2100 [facility] Last Admin: 05/28/18 20:12 Dose: 2 tab - Labs Labs: 05/28/18 10:30 05/28/18 10:30 - Constitutional Appears: No Acute Distress - Head Exam Head Exam: NORMAL INSPECTION - Eye Exam Pupil Exam: PERRL - Neurological Exam Neurological Exam: Alert, Awake Neuro motor strength exam: Left Upper Extremity: 3, Right Upper Extremity: 4, Left Lower Extremity: 3, Right Lower Extremity: 4 Additional comments: neurological unchanged from previous examination. Assessment and Plan (1) CVA (cerebral vascular accident) Assessment & Plan: Case discussed with Dr. Burkett, continue all current medical, physical, occupational, and speech therapies. Recommend hydration, blood pressure and glycemic control, cognitive therapy. Status: Chronic
--- NOTE | 2018-05-29 14:18 | CP.PCM.PN ---
Subjective - Date & Time of Evaluation Date of Evaluation: 05/29/18 Time of Evaluation: 10:00 - Subjective Subjective: no acute complaints at present Objective - Vital Signs/Intake and Output Vital Signs (last 24 hours): Temp Pulse Resp BP Pulse Ox 97.9 F 87 20 122/70 97 05/29/18 08:25 05/29/18 08:43 05/29/18 08:25 05/29/18 08:25 05/29/18 08:25 - Medications Medications: Current Medications Acetaminophen (Tylenol 325mg Tab) 325 mg PO Q6 PRN PRN Reason: PAIN 1-10 Last Admin: 05/27/18 17:16 Dose: 325 mg Albuterol/Ipratropium (Duoneb 3 Mg/0.5 Mg (3 Ml) Ud) 3 ml IH RQ6 PRN PRN Reason: Shortness of Breath Alprazolam (Xanax) 0.5 mg PO DAILY PRN PRN Reason: Anxiety Aspirin (Aspirin Chewable) 81 mg PO DAILY [facility] Last Admin: 05/29/18 08:08 Dose: 81 mg Atorvastatin Calcium (Lipitor) 40 mg PO HS@2100 [facility] Last Admin: 05/28/18 20:12 Dose: 40 mg Bisacodyl (Dulcolax) 10 mg [place] DAILY PRN PRN Reason: Constipation Clopidogrel Bisulfate (Plavix) 75 mg PO DAILY [facility] Last Admin: 05/29/18 08:07 Dose: 75 mg Enoxaparin Sodium (Lovenox) 40 mg SC DAILY [facility] PRN Reason: Protocol Last Admin: 05/29/18 08:07 Dose: 40 mg Ergocalciferol (Drisdol 50,000 Intl Units Cap) 1 cap PO Q7D [facility] Last Admin: 05/29/18 08:07 Dose: 1 cap Famotidine (Pepcid) 20 mg PO HS@2100 [facility] Last Admin: 05/28/18 20:12 Dose: 20 mg Home Med (Patient's Own Medication) 3 unit PO 1800 [facility] Last Admin: 05/28/18 17:50 Dose: 3 unit Home Med (Patient's Own Medication) 4 unit PO 1800 [facility] Last Admin: 05/28/18 17:49 Dose: 4 unit Home Med (Patient's Own Medication) 2 unit PO 1800 [facility] Last Admin: 05/28/18 17:50 Dose: 2 unit Home Med (Patient's Own Medication) 3 unit PO HS@1999 [facility] Last Admin: 05/28/18 20:11 Dose: 3 unit Magnesium Hydroxide (Milk Of Magnesia) 30 ml PO DAILY PRN PRN Reason: Constipation Last Admin: 05/26/18 12:28 Dose: 30 ml Magnesium Oxide (Mag-Ox) 400 mg PO BID [facility] Last Admin: 05/29/18 08:08 Dose: 400 mg Ondansetron HCl (Zofran Odt) 4 mg PO Q8H PRN PRN Reason: Nausea/Vomiting Senna/Docusate Sodium (Senokot S 50 Mg-8.6 Mg) 2 tab PO HS@2100 [facility] Last Admin: 05/28/18 20:12 Dose: 2 tab - Labs Labs: 05/28/18 10:30 05/28/18 10:30 - Head Exam Head Exam: ATRAUMATIC, NORMAL INSPECTION, NORMOCEPHALIC - Eye Exam Eye Exam: EOMI, Normal appearance, PERRL Pupil Exam: NORMAL ACCOMODATION - ENT Exam ENT Exam: Mucous Membranes Moist, Normal Exam - Neck Exam Neck Exam: Full ROM, Normal Inspection - Respiratory Exam Respiratory Exam: NORMAL BREATHING PATTERN - Cardiovascular Exam Cardiovascular Exam: REGULAR RHYTHM - GI/Abdominal Exam GI & Abdominal Exam: Soft, Normal Bowel Sounds - Rectal Exam Rectal Exam: NORMAL INSPECTION - Exam External exam: NORMAL EXTERNAL EXAM - Extremities Exam Extremities Exam: Full ROM, Normal Capillary Refill, Normal Inspection - Back Exam Back Exam: NORMAL INSPECTION - Neurological Exam Neurological Exam: Alert, Awake Neuro motor strength exam: Left Upper Extremity: 3, Right Upper Extremity: 3, Left Lower Extremity: 3, Right Lower Extremity: 3 - Psychiatric Exam Psychiatric exam: Normal Affect, Normal Mood - Skin Skin Exam: Dry, Intact Assessment and Plan (1) CVA (cerebral vascular accident) Assessment & Plan: plan for pt, ot rec therapy may go ouside with therapy psych follow up Status: Chronic (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
--- NOTE | 2018-05-29 16:26 | CP.PCM.PN ---
Subjective - Date & Time of Evaluation Date of Evaluation: 05/29/18 Time of Evaluation: 13:20 - Subjective Subjective: Patient seen and examined. Denied any complaint. Objective - Vital Signs/Intake and Output Vital Signs (last 24 hours): Temp Pulse Resp BP Pulse Ox 97.9 F 87 20 122/70 97 05/29/18 08:25 05/29/18 08:43 05/29/18 08:25 05/29/18 08:25 05/29/18 08:25 - Medications Medications: Current Medications Acetaminophen (Tylenol 325mg Tab) 325 mg PO Q6 PRN PRN Reason: PAIN 1-10 Last Admin: 05/27/18 17:16 Dose: 325 mg Albuterol/Ipratropium (Duoneb 3 Mg/0.5 Mg (3 Ml) Ud) 3 ml IH RQ6 PRN PRN Reason: Shortness of Breath Alprazolam (Xanax) 0.5 mg PO DAILY PRN PRN Reason: Anxiety Aspirin (Aspirin Chewable) 81 mg PO DAILY [facility] Last Admin: 05/29/18 08:08 Dose: 81 mg Atorvastatin Calcium (Lipitor) 40 mg PO HS@2100 [facility] Last Admin: 05/28/18 20:12 Dose: 40 mg Bisacodyl (Dulcolax) 10 mg [place] DAILY PRN PRN Reason: Constipation Clopidogrel Bisulfate (Plavix) 75 mg PO DAILY [facility] Last Admin: 05/29/18 08:07 Dose: 75 mg Enoxaparin Sodium (Lovenox) 40 mg [place] DAILY [facility] PRN Reason: Protocol Last Admin: 05/29/18 08:07 Dose: 40 mg Ergocalciferol (Drisdol 50,000 Intl Units Cap) 1 cap PO Q7D [facility] Last Admin: 05/29/18 08:07 Dose: 1 cap Famotidine (Pepcid) 20 mg PO HS@2100 [facility] Last Admin: 05/28/18 20:12 Dose: 20 mg Home Med (Patient's Own Medication) 3 unit PO 1800 [facility] Last Admin: 05/28/18 17:50 Dose: 3 unit Home Med (Patient's Own Medication) 4 unit PO 1800 [facility] Last Admin: 05/28/18 17:49 Dose: 4 unit Home Med (Patient's Own Medication) 2 unit PO 1800 [facility] Last Admin: 08/28/18 17:50 Dose: 2 unit Home Med (Patient's Own Medication) 3 unit PO HS@2000 [facility] Last Admin: 05/28/18 20:11 Dose: 3 unit Magnesium Hydroxide (Milk Of Magnesia) 30 ml PO DAILY PRN PRN Reason: Constipation Last Admin: 05/26/18 12:28 Dose: 30 ml Magnesium Oxide (Mag-Ox) 400 mg PO BID [facility] Last Admin: 05/29/18 08:08 Dose: 400 mg Ondansetron HCl (Zofran Odt) 4 mg PO Q8H PRN PRN Reason: Nausea/Vomiting Senna/Docusate Sodium (Senokot S 50 Mg-8.6 Mg) 2 tab PO HS@2100 [facility] Last Admin: 05/28/18 20:12 Dose: 2 tab - Labs Labs: 05/28/18 10:30 05/28/18 10:30 - Constitutional Appears: No Acute Distress - Head Exam Head Exam: ATRAUMATIC - Eye Exam Eye Exam: absent: Scleral icterus - ENT Exam ENT Exam: Mucous Membranes Moist - Neck Exam Neck Exam: absent: Meningismus - Respiratory Exam Respiratory Exam: absent: Rales, Rhonchi, Wheezes, Respiratory Distress - Cardiovascular Exam Cardiovascular Exam: REGULAR RHYTHM, +S1, +S2 - GI/Abdominal Exam GI & Abdominal Exam: Soft. absent: Tenderness - Rectal Exam Rectal Exam: Deferred - Neurological Exam Neurological Exam: Alert, Oriented x3 - Psychiatric Exam Psychiatric exam: Normal Affect - Skin Skin Exam: Dry, Intact Assessment and Plan - Assessment and Plan (Free Text) Assessment: 73 yo female with history of CVA, psychosis, COPD and HTN was admitted at [facility]3] with Acute Right Basal Ganglia Infarct. The patient was transferred to Acute Rehab for therapy. 1. Right Basal Ganglia CVA continue ASA, Plavix, statin continue PT/OT/ST 2. HTN BP stable without meds 3. COPD Duoneb q 4hrs prn 4. DVT prophylaxis Lovenox 40mg SC daily
[2018-05-29] MEDS: BENZTROPINE MESYLATE 1 MG PO SCH (17:56)
[2018-05-29] MEDS: HALOPERIDOL 1 MG PO SCH (17:56)
[2018-05-29] MEDS: DOXEPIN HCL 50 MG PO SCH (17:56)
[2018-05-29] MEDS: ALPRAZOLAM 0.5 MG PO SCH (20:21)
[2018-05-29] MEDS: Docusate-Senna 50 mg-8.6 mg Tab PO SCH (20:23)
[2018-05-30] MEDS: Enoxaparin 40 mg Syringe SC SCH (08:27)
[2018-05-30] MEDS: Magnesium Oxide 400 mg Tab UD PO SCH ×2 (08:28→17:18)
--- NOTE | 2018-05-30 09:16 | CP.PCM.PN ---
Subjective - Date & Time of Evaluation Date of Evaluation: 05/30/18 Time of Evaluation: 09:16 - Subjective Subjective: klaudia Cross was seen and examined at the bedside. She is alert oriented with episode of forgetfulness. She is aware of her chair alarm. She denies any headache, dizziness, lightheadedness, nausea, or vomiting. She is able to feed herself, follow simple commands, and knows to verbalize her needs to staff.. She is able to ambulate to and from the bathroom with walker in a steady gait.There were no untoward events overnight Objective - Vital Signs/Intake and Output Vital Signs (last 24 hours): Temp Pulse Resp BP Pulse Ox 97.9 F 88 20 129/59 L 97 05/30/18 08:02 05/30/18 08:02 05/30/18 08:02 05/30/18 08:02 05/30/18 08:02 - Medications Medications: Current Medications Acetaminophen (Tylenol 325mg Tab) 325 mg PO Q6 PRN PRN Reason: PAIN 1-10 Last Admin: 05/30/18 08:30 Dose: 325 mg Albuterol/Ipratropium (Duoneb 3 Mg/0.5 Mg (3 Ml) Ud) 3 ml IH RQ6 PRN PRN Reason: Shortness of Breath Alprazolam (Xanax) 0.5 mg PO DAILY PRN PRN Reason: Anxiety Aspirin (Aspirin Chewable) 81 mg PO DAILY [facility] Last Admin: 05/30/18 08:29 Dose: 81 mg Atorvastatin Calcium (Lipitor) 40 mg PO HS@2100 [facility] Last Admin: 05/29/18 20:23 Dose: 40 mg Bisacodyl (Dulcolax) 10 mg [place] DAILY PRN PRN Reason: Constipation Clopidogrel Bisulfate (Plavix) 75 mg PO DAILY [facility] Last Admin: 05/30/18 08:28 Dose: 75 mg Enoxaparin Sodium (Lovenox) 40 mg SC DAILY [facility] PRN Reason: Protocol Last Admin: 05/30/18 08:27 Dose: 40 mg Ergocalciferol (Drisdol 50,000 Intl Units Cap) 1 cap PO Q7D [facility] Last Admin: 05/29/18 08:07 Dose: 1 cap Famotidine (Pepcid) 20 mg PO HS@2100 [facility] Last Admin: 05/29/18 20:23 Dose: 20 mg Home Med (Patient's Own Medication) 3 unit PO 1800 [facility] Last Admin: 05/29/18 17:56 Dose: 3 unit Home Med (Patient's Own Medication) 4 unit PO 1800 [facility] Last Admin: 05/29/18 17:56 Dose: 4 unit Home Med (Patient's Own Medication) 2 unit PO 1800 [facility] Last Admin: 05/29/18 17:56 Dose: 2 unit Home Med (Patient's Own Medication) 3 unit PO HS@2000 [facility] Last Admin: 05/29/18 20:21 Dose: 3 unit Magnesium Hydroxide (Milk Of Magnesia) 30 ml PO DAILY PRN PRN Reason: Constipation Last Admin: 05/26/18 12:28 Dose: 30 ml Magnesium Oxide (Mag-Ox) 400 mg PO BID [facility] Last Admin: 05/30/18 08:28 Dose: 400 mg Ondansetron HCl (Zofran Odt) 4 mg PO Q8H PRN PRN Reason: Nausea/Vomiting Senna/Docusate Sodium (Senokot S 50 Mg-8.6 Mg) 2 tab PO HS@2100 [facility] Last Admin: 05/29/18 20:23 Dose: 2 tab - Labs Labs: 05/28/18 10:30 05/28/18 10:30 - Constitutional Appears: No Acute Distress - Head Exam Head Exam: NORMAL INSPECTION - Eye Exam Pupil Exam: PERRL - Neurological Exam Neuro motor strength exam: Left Upper Extremity: 4, Right Upper Extremity: 5, Left Lower Extremity: 4, Right Lower Extremity: 5 Additional comments: neurological unchanged from previous examination. Assessment and Plan (1) CVA (cerebral vascular accident) Assessment & Plan: Case discussed with Dr. Burkett, continue all current medical, physical, occupational, and speech therapies. Recommend hydration, blood pressure and glycemic control, cognitive therapy. Status: Chronic
[2018-05-30] MEDS: DOXEPIN HCL 50 MG PO SCH (18:38)
[2018-05-30] MEDS: BENZTROPINE MESYLATE 1 MG PO SCH (18:42)
[2018-05-30] MEDS: HALOPERIDOL 1 MG PO SCH (19:07)
[2018-05-30] MEDS: Docusate-Senna 50 mg-8.6 mg Tab PO SCH (20:09)
[2018-05-30] MEDS: ALPRAZOLAM 0.5 MG PO SCH (20:15)
--- NOTE | 2018-05-31 07:53 | CP.PCM.CON ---
History of Present Illness - History of Present Illness History of Present Illness: Pt is a 73 year old female admitted to [facility] and referred to the film writer for evaluation. Pt reported HTN, hysterectomy, past CVA and more recent CVA according to report and psychiatric illness. Pt was unaware of her diagnosis though is on multiple psych medications and is followed by Dr. Shay in the community 4x per year. Pt denied a history of alc/sub abuse. Pt reported her past symptoms to include hallucinations, anxiety and depression. Pt denied these symptoms at this time. History positive for one inpatient psychiatric hospitalization 4 years ago. Ed/Voc: pt raised in [place], 8th grade education. Pt reported working for the [employer] for 10+ years. Social Hx; Pt lives in with her son, daughter in law and three grandchildren. She has two other children who reside in [place]. Pt reported very positive family relationships and independence prior to admission. MSE Pt alert, oriented, relevant/coherent, no psychosis at present, pt denied auditory hallucinations, pt spoke of overall comfort at present, depression and anxiety denied, no si no homicidal ideation. Pt spoke of having a stable mood at present with positive treatment provided by others. Dx: R/O Depression with psychosis R/O Schzoaffective dx plan: Continued Sup therapy Past Patient History - Past Medical History & Family History Past Medical History?: Yes - Past Social History Smoking Status: Never Smoked Alcohol: None Drugs: Denies Home Situation {Lives}: With Family (elevator) - CARDIAC Hx Hypertension: Yes - PULMONARY Hx Chronic Obstructive Pulmonary Disease (COPD): Yes - NEUROLOGICAL Hx Neurological Disorder: Yes HX Cerebrovascular Accident: Yes (9 years ago) - MUSCULOSKELETAL/RHEUMATOLOGICAL Hx Falls: Yes - PSYCHIATRIC Hx Psychosis: Yes Hx Substance Use: No - SURGICAL HISTORY Hx Surgeries: Yes Hx Hysterectomy: Yes - ANESTHESIA Hx Anesthesia: Yes Hx Anesthesia Reactions: No Meds Allergies/Adverse Reactions: Allergies Allergy/AdvReac Type Severity Reaction Status Date / Time Penicillins Allergy RASH Verified 05/22/18 02:24 - Medications Medications: Current Medications Acetaminophen (Tylenol 325mg Tab) 325 mg PO Q6 PRN PRN Reason: PAIN 1-10 Last Admin: 05/30/18 08:30 Dose: 325 mg Albuterol/Ipratropium (Duoneb 3 Mg/0.5 Mg (3 Ml) Ud) 3 ml IH RQ6 PRN PRN Reason: Shortness of Breath Alprazolam (Xanax) 0.5 mg PO DAILY PRN PRN Reason: Anxiety Aspirin (Aspirin Chewable) 81 mg PO DAILY [facility] Last Admin: 05/30/18 08:29 Dose: 81 mg Atorvastatin Calcium (Lipitor) 40 mg PO HS@2100 [facility] Last Admin: 05/30/18 20:09 Dose: 40 mg Bisacodyl (Dulcolax) 10 mg [place] DAILY PRN PRN Reason: Constipation Clopidogrel Bisulfate (Plavix) 75 mg PO DAILY [facility] Last Admin: 05/30/18 08:28 Dose: 75 mg Enoxaparin Sodium (Lovenox) 40 mg SC DAILY [facility] PRN Reason: Protocol Last Admin: 05/30/18 08:27 Dose: 40 mg Ergocalciferol (Drisdol 50,000 Intl Units Cap) 1 cap PO Q7D [facility] Last Admin: 05/29/18 08:07 Dose: 1 cap Famotidine (Pepcid) 20 mg PO HS@2100 [facility] Last Admin: 05/30/18 20:09 Dose: 20 mg Home Med (Patient's Own Medication) 3 unit PO 1800 [facility] Last Admin: 05/30/18 18:38 Dose: 3 unit Home Med (Patient's Own Medication) 4 unit PO 1800 [facility] Last Admin: 05/30/18 19:07 Dose: 4 unit Home Med (Patient's Own Medication) 2 unit PO 1800 [facility] Last Admin: 05/30/18 18:42 Dose: 2 unit Home Med (Patient's Own Medication) 3 unit PO HS@2000 [facility] Last Admin: 05/30/18 20:15 Dose: 3 unit Magnesium Hydroxide (Milk Of Magnesia) 30 ml PO DAILY PRN PRN Reason: Constipation Last Admin: 05/26/18 12:28 Dose: 30 ml Magnesium Oxide (Mag-Ox) 400 mg PO BID [facility] Last Admin: 05/30/18 17:18 Dose: 400 mg Ondansetron HCl (Zofran Odt) 4 mg PO Q8H PRN PRN Reason: Nausea/Vomiting Senna/Docusate Sodium (Senokot S 50 Mg-8.6 Mg) 2 tab PO HS@2100 [facility] Last Admin: 05/30/18 20:09 Dose: 2 tab Results - Vital Signs Recent Vital Signs: Last Vital Signs Temp 97.9 F 05/30/18 20:30 Pulse 91 H 05/30/18 20:30 Resp 20 05/30/18 20:30 BP 149/60 05/30/18 20:30 Pulse Ox 95 05/30/18 20:30 - Labs Result Diagrams: 05/28/18 10:30 05/28/18 10:30
[2018-05-31] MEDS: Enoxaparin 40 mg Syringe SC SCH (08:34)
[2018-05-31] MEDS: Magnesium Oxide 400 mg Tab UD PO SCH ×2 (08:35→16:54)
--- NOTE | 2018-05-31 09:06 | CP.PCM.PN ---
Subjective - Date & Time of Evaluation Date of Evaluation: 05/31/18 Time of Evaluation: 09:06 - Subjective Subjective: Ms. Cross was seen and examined at the bedside. She is alert oriented with episode of forgetfulness. She claims of being an active participant during therapy session. She is aware of her episode of forgetfulness, is interested in undergoing a CAG as an outpatient. She denies any headache, dizziness, lightheadedness, nausea, or vomiting. She is able to feed herself, follow simple commands, and knows to verbalize her needs to staff.. She is able to ambulate to and from the bathroom with walker in a steady gait.There were no untoward events overnight Objective - Vital Signs/Intake and Output Vital Signs (last 24 hours): Temp Pulse Resp BP Pulse Ox 97.7 F 84 20 111/60 98 05/31/18 08:31 05/31/18 08:31 05/31/18 08:31 05/31/18 08:31 05/31/18 08:31 - Medications Medications: Current Medications Acetaminophen (Tylenol 325mg Tab) 325 mg PO Q6 PRN PRN Reason: PAIN 1-10 Last Admin: 05/30/18 08:30 Dose: 325 mg Albuterol/Ipratropium (Duoneb 3 Mg/0.5 Mg (3 Ml) Ud) 3 ml IH RQ6 PRN PRN Reason: Shortness of Breath Alprazolam (Xanax) 0.5 mg PO DAILY PRN PRN Reason: Anxiety Aspirin (Aspirin Chewable) 81 mg PO DAILY [facility] Last Admin: 05/31/18 08:35 Dose: 81 mg Atorvastatin Calcium (Lipitor) 40 mg PO HS@2100 [facility] Last Admin: 05/30/18 20:09 Dose: 40 mg Bisacodyl (Dulcolax) 10 mg [place] DAILY PRN PRN Reason: Constipation Clopidogrel Bisulfate (Plavix) 75 mg PO DAILY [facility] Last Admin: 05/31/18 08:33 Dose: 75 mg Enoxaparin Sodium (Lovenox) 40 mg SC DAILY [facility] PRN Reason: Protocol Last Admin: 05/31/18 08:34 Dose: 40 mg Ergocalciferol (Drisdol 50,000 Intl Units Cap) 1 cap PO Q7D [facility] Last Admin: 05/29/18 08:07 Dose: 1 cap Famotidine (Pepcid) 20 mg PO HS@2100 [facility] Last Admin: 05/30/18 20:09 Dose: 20 mg Home Med (Patient's Own Medication) 3 unit PO 1800 [facility] Last Admin: 05/30/18 18:38 Dose: 3 unit Home Med (Patient's Own Medication) 4 unit PO 1800 [facility] Last Admin: 05/30/18 19:07 Dose: 4 unit Home Med (Patient's Own Medication) 2 unit PO 1800 [facility] Last Admin: 05/30/18 18:42 Dose: 2 unit Home Med (Patient's Own Medication) 3 unit PO HS@2000 [facility] Last Admin: 05/30/18 20:15 Dose: 3 unit Magnesium Hydroxide (Milk Of Magnesia) 30 ml PO DAILY PRN PRN Reason: Constipation Last Admin: 05/26/18 12:28 Dose: 30 ml Magnesium Oxide (Mag-Ox) 400 mg PO BID [facility] Last Admin: 05/31/18 08:35 Dose: 400 mg Ondansetron HCl (Zofran Odt) 4 mg PO Q8H PRN PRN Reason: Nausea/Vomiting Senna/Docusate Sodium (Senokot S 50 Mg-8.6 Mg) 2 tab PO HS@2100 [facility] Last Admin: 05/30/18 20:09 Dose: 2 tab - Labs Labs: 05/28/18 10:30 05/28/18 10:30 - Constitutional Appears: No Acute Distress - Head Exam Head Exam: NORMAL INSPECTION - Eye Exam Pupil Exam: PERRL - Neurological Exam Neurological Exam: Alert, Awake, Oriented x3 Neuro motor strength exam: Left Upper Extremity: 4, Right Upper Extremity: 5, Left Lower Extremity: 4, Right Lower Extremity: 5 Additional comments: neurological unchanged from previous examination. Assessment and Plan (1) CVA (cerebral vascular accident) Assessment & Plan: Case discussed with Dr. Burkett, continue all current medical, physical, occupational, and speech therapies. Recommend hydration, blood pressure and glycemic control, cognitive therapy, follow up with neurologist upon discharge . Patient agreed to follow up with DR. Burkett at [address] [place] [address]. [address] [facility] [address] tel. [phone]. Status: Chronic
[2018-05-31 09:09] LABS: HEMOGLOBIN 11.3 g/dL (12.0-16.0); MEAN CELL VOLUME 93.9 fl (81.0-99.0); MEAN CORPUSCULAR HEMOGLOBIN 31.5 pg (27.0-31.0); MEAN CORPUSCULAR HGB CONC 33.6 g/dL (33.0-37.0); RBC 3.6 Mil/uL (3.80-5.20); RED CELL DISTRIBUTION WIDTH 13.5 % (11.5-14.5); WHITE BLOOD COUNT 8.4 K/uL (4.8-10.8)
[2018-05-31 09:16] LABS: BLOOD UREA NITROGEN 16 mg/dl (7-17); CALCIUM 9.2 mg/dL (8.4-10.2); GFR NON-AFRICAN AMERICAN > 60
--- NOTE | 2018-05-31 12:47 | CP.PCM.PN ---
Subjective - Date & Time of Evaluation Date of Evaluation: 05/31/18 Time of Evaluation: 12:46 Objective - Vital Signs/Intake and Output Vital Signs (last 24 hours): Temp Pulse Resp BP Pulse Ox 98 F 84 20 111/60 98 05/31/18 09:42 05/31/18 08:31 05/31/18 08:31 05/31/18 08:31 05/31/18 08:31 - Medications Medications: Current Medications Acetaminophen (Tylenol 325mg Tab) 325 mg PO Q6 PRN PRN Reason: PAIN 1-10 Last Admin: 05/31/18 09:42 Dose: 325 mg Albuterol/Ipratropium (Duoneb 3 Mg/0.5 Mg (3 Ml) Ud) 3 ml IH RQ6 PRN PRN Reason: Shortness of Breath Alprazolam (Xanax) 0.5 mg PO DAILY PRN PRN Reason: Anxiety Aspirin (Aspirin Chewable) 81 mg PO DAILY [facility] Last Admin: 05/31/18 08:35 Dose: 81 mg Atorvastatin Calcium (Lipitor) 40 mg PO HS@2100 [facility] Last Admin: 05/30/18 20:09 Dose: 40 mg Bisacodyl (Dulcolax) 10 mg [place] DAILY PRN PRN Reason: Constipation Clopidogrel Bisulfate (Plavix) 75 mg PO DAILY [facility] Last Admin: 05/31/18 08:33 Dose: 75 mg Enoxaparin Sodium (Lovenox) 40 mg SC DAILY [facility] PRN Reason: Protocol Last Admin: 05/31/18 08:34 Dose: 40 mg Ergocalciferol (Drisdol 50,000 Intl Units Cap) 1 cap PO Q7D [facility] Last Admin: 05/29/18 08:07 Dose: 1 cap Famotidine (Pepcid) 20 mg PO HS@2100 [facility] Last Admin: 05/30/18 20:09 Dose: 20 mg Home Med (Patient's Own Medication) 3 unit PO 1800 [facility] Last Admin: 05/30/18 18:38 Dose: 3 unit Home Med (Patient's Own Medication) 4 unit PO 1800 [facility] Last Admin: 05/30/18 19:07 Dose: 4 unit Home Med (Patient's Own Medication) 2 unit PO 1800 [facility] Last Admin: 05/30/18 18:42 Dose: 2 unit Home Med (Patient's Own Medication) 3 unit PO HS@2000 [facility] Last Admin: 05/30/18 20:15 Dose: 3 unit Magnesium Hydroxide (Milk Of Magnesia) 30 ml PO DAILY PRN PRN Reason: Constipation Last Admin: 05/26/18 12:28 Dose: 30 ml Magnesium Oxide (Mag-Ox) 400 mg PO BID [facility] Last Admin: 05/31/18 08:35 Dose: 400 mg Ondansetron HCl (Zofran Odt) 4 mg PO Q8H PRN PRN Reason: Nausea/Vomiting Senna/Docusate Sodium (Senokot S 50 Mg-8.6 Mg) 2 tab PO HS@2100 [facility] Last Admin: 05/30/18 20:09 Dose: 2 tab - Labs Labs: 05/31/18 08:30 05/31/18 08:30
[2018-05-31] MEDS: BENZTROPINE MESYLATE 1 MG PO SCH (17:10)
[2018-05-31] MEDS: DOXEPIN HCL 50 MG PO SCH (17:10)
[2018-05-31] MEDS: HALOPERIDOL 1 MG PO SCH (17:17)
[2018-05-31] MEDS: Docusate-Senna 50 mg-8.6 mg Tab PO SCH (20:11)
[2018-05-31] MEDS: ALPRAZOLAM 0.5 MG PO SCH (20:11)
[2018-06-01] MEDS: Enoxaparin 40 mg Syringe SC SCH (08:36)
[2018-06-01] MEDS: Magnesium Oxide 400 mg Tab UD PO SCH ×2 (08:40→17:22)
[2018-06-01] MEDS: BENZTROPINE MESYLATE 1 MG PO SCH (17:21)
[2018-06-01] MEDS: HALOPERIDOL 1 MG PO SCH (17:21)
[2018-06-01] MEDS: DOXEPIN HCL 50 MG PO SCH (17:21)
[2018-06-01] MEDS: Magnesium Hydroxide Susp 30 ml UD PO PRN (17:22)
[2018-06-01] MEDS: ALPRAZOLAM 0.5 MG PO SCH (20:18)
[2018-06-01] MEDS: Docusate-Senna 50 mg-8.6 mg Tab PO SCH (20:19)
[2018-06-02] MEDS: Magnesium Oxide 400 mg Tab UD PO SCH ×2 (08:52→18:00)
[2018-06-02] MEDS: Enoxaparin 40 mg Syringe SC SCH (08:52)
[2018-06-02] MEDS: DOXEPIN HCL 50 MG PO SCH (18:19)
[2018-06-02] MEDS: BENZTROPINE MESYLATE 1 MG PO SCH (18:19)
[2018-06-02] MEDS: HALOPERIDOL 1 MG PO SCH (18:23)
[2018-06-02] MEDS: ALPRAZOLAM 0.5 MG PO SCH (20:04)
[2018-06-02] MEDS: Docusate-Senna 50 mg-8.6 mg Tab PO SCH (20:04)
[2018-06-03 06:18] LABS: BASO # 0.1 K/uL (0.0-0.2); BASO % 1.1 % (0.0-2.0); EOS # 0.2 K/uL (0.0-0.7); EOS % 2.9 % (0.0-4.0); HEMOGLOBIN 11.5 g/dL (12.0-16.0); LYMPH # 1.9 K/uL (1.0-4.3); LYMPH % 23.1 % (20.0-40.0); MEAN CELL VOLUME 92.6 fl (81.0-99.0); MEAN CORPUSCULAR HEMOGLOBIN 30.9 pg (27.0-31.0); MEAN CORPUSCULAR HGB CONC 33.4 g/dL (33.0-37.0); MEAN PLATELET VOLUME 9.1 fl (7.2-11.7); MONO # 0.7 K/uL (0.0-0.8); MONO % 8.5 % (0.0-10.0); NEUT # 5.3 K/uL (1.8-7.0); NEUT % 64.4 % (50.0-75.0); RBC 3.73 Mil/uL (3.80-5.20); RED CELL DISTRIBUTION WIDTH 13.5 % (11.5-14.5); WHITE BLOOD COUNT 8.2 K/uL (4.8-10.8)
[2018-06-03 06:25] LABS: BLOOD UREA NITROGEN 15 mg/dl (7-17); CALCIUM 9.2 mg/dL (8.4-10.2); GFR NON-AFRICAN AMERICAN > 60
[2018-06-03] MEDS: Magnesium Oxide 400 mg Tab UD PO SCH ×2 (08:12→17:39)
[2018-06-03] MEDS: Enoxaparin 40 mg Syringe SC SCH (08:12)
[2018-06-03] MEDS: HALOPERIDOL 1 MG PO SCH (17:39)
[2018-06-03] MEDS: BENZTROPINE MESYLATE 1 MG PO SCH (17:39)
[2018-06-03] MEDS: DOXEPIN HCL 50 MG PO SCH (17:39)
[2018-06-03] MEDS: ALPRAZOLAM 0.5 MG PO SCH (20:18)
[2018-06-03] MEDS: Docusate-Senna 50 mg-8.6 mg Tab PO SCH (20:19)
[2018-06-04] MEDS: Enoxaparin 40 mg Syringe SC SCH (08:37)
[2018-06-04] MEDS: Magnesium Oxide 400 mg Tab UD PO SCH ×2 (08:37→17:26)
--- NOTE | 2018-06-04 09:18 | PSY.TMCNF ---
Nursing - Vital Signs Pain: 0 - Precautions: Precautions: Fall Prevention - Medications/Other Issues Comment: Pt at low nutritional risk. no goals. Follow-up due on 06/10/2018 - Consults Comment: DR. DUAGN, DR. GUTHRIE - Toileting Toileting: Supervision - Bladder Management Bladder Pattern: Normal Voiding Method: Toilet - Bowel Management Bowel Pattern: Constipated Comment: (+) IBS-CONTIPATION TYPE, ALREADY IN [place] AT HS AND MOM PRN Bowel Management: Supervision Frequency of Accidents: 0 - Transfers Transfers: Supervision - ADL's ADL's: Supervision - Patient/Family Teaching Comments: CARE POST CVA AND SAFETY PRECAUTIONS - Goals/Time Frame Comments: PER MULTIDISCIPLINARY CARE PLAN AND GOALS - Provider Provider: ORIANA MURON RN CRRN Physical Therapy - Bed Mobility Bed Mobility: Modified Independent, Supervision, Verbal Cues - Transfers Wheelchair to Mat: Supervision, Verbal Cues Sit to Stand: Modified Independent, Supervision - Ambulation Level of Assistance: Modified Independent, Supervision, Verbal Cues Distance (ft.): 200 Orthoses: n/a Comment: 200 feet with cane with supervision with narrow base of support. - patient is mod I with cane in small areas for mobility and would be mod I with SPC for mobility inside the home - Stair Negotiation Stairs: Level of Assistance: Supervision, Verbal Cues Stairs: Assistive Devices: Left Handrail, Right Handrail, Single point cane Comment: -2 flights 8 inch steps with step to pattern with supervision, L rail with SPC on R for ascent and R rail with SPC on L for descent - Standing Balance Static Stand: Supervision Dynamic Stand: Supervision - Pain Pain (assessed during therapy session): 0 Comment: denies pain - Insight/Carryover Insight/Carryover: Fair - Patient/Family Education Comment: family training completed today: -son understands all recommendations. 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 -education completed regarding healthy lifestyle changes, continues medical treatment and continued rehabilitation s/p discharge from acute rehab - Assessment/Plan Assessment: Ms. Cross continues to make good progress in therapy. Patient negotiated steps and ambulated with son present to observe. Discussed recommendations for safety up on home discharge including single floor set up, supervision with steps, supervision with showering and supervision/assistance for mobility in community. Son reports agreement with POC. Daughter present for portion of training; presents with some anxiety regarding patient's discharge with concern about steps, gait and showering. Provided education to daughter as able and encouraged her to focus on the immediate future for safety and to take one step at a time in regards to patient's recovery process. PT recommends home discharge with intermittent supervision, home services and supervision in the community. - Goals Timeframe: 7 days Goals: mod I with bed/mat mobility. mod Iwith transfers. mod I with gait with SPC x 150 feet. ds with gait with RW on all surfaces x 1000 feet - Provider Therapist: Diandra Grewal PT, DPT License Number: [id number] Occupational Therapy - Arousal/Attention/Orientation Patient Orientation: Person, Place, Time, Appropriate to Age, Appropriate to Situation - ADL/IADL Self Feeding: Set-up Help Grooming: Set-up Help Bathing-Upper Extremity: Supervision Bathing-Lower Extremity: Supervision, Verbal Cues, Set-up Help Dressing-Upper Extremity: Supervision, Set-up Help Dressing-Lower Extremity: Supervision, Set-up Help, Contact Guard - Sitting Balance Static Sitting: Independent without upper extremity support Dynamic Sitting: Reaches out of base of support - Transfers Wheelchair to Bed Transfers: Supervision Toilet Transfers: Supervision - Wheelchair Management Level of Assistance: Supervision Distance (ft.): 150 - Upper Extremity Status Right Upper Extremity Comment: WFLs Left Upper Extremity Comment: WLs - Pain Pain (assessed during therapy session): 0 Comment: denies pain - Insight/Carryover Insight/Carryover: Fair - Patient/Family Education Comment: family training completed today: -son understands all recommendations. 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 -education completed regarding healthy lifestyle changes, continues medical treatment and continued rehabilitation s/p discharge from acute rehab - Assessment/Plan Assessment: Ms. Cross continues to make good progress in therapy. Patient negotiated steps and ambulated with son present to observe. Discussed recommendations for safety up on home discharge including single floor set up, supervision with steps, supervision with showering and supervision/assistance for mobility in community. Son reports agreement with POC. Daughter present for portion of training; presents with some anxiety regarding patient's discharge with concern about steps, gait and showering. Provided education to daughter as able and encouraged her to focus on the immediate future for safety and to take one step at a time in regards to patient's recovery process. PT recommends home discharge with intermittent supervision, home services and supervision in the community. - Goals Timeframe: 7 days Goals: mod I with bed/mat mobility. mod Iwith transfers. mod I with gait with SPC x 150 feet. ds with gait with RW on all surfaces x 1000 feet - Provider Therapist: ARNOL Ohara/[facility] Speech [facility] - Consult Information Patient on Program: Yes Medical Diagnosis: CVA Treatment Diagnosis: mild dysarthria. mild cognitive-linguistic deficits - Assessment Memory Impairment: Mild Speech/Articulation Impairment: Mild - Plan Assessment: Ms. Cross continues to make good progress in therapy. Patient negotiated steps and ambulated with son present to observe. Discussed recommendations for safety up on home discharge including single floor set up, supervision with steps, supervision with showering and supervision/assistance for mobility in community. Son reports agreement with POC. Daughter present for portion of training; presents with some anxiety regarding patient's discharge with concern about steps, gait and showering. Provided education to daughter as able and encouraged her to focus on the immediate future for safety and to take one step at a time in regards to patient's recovery process. PT recommends home discharge with intermittent supervision, home services and supervision in the community. - Provider Therapist: Sabi Gross License Number: [id number] Recreational Therapy - Participation Participation: Participates in Individual and/or Group Sessions - Attendance Attendance: 3-5 times per week - Activities Leisure Activities: Cards and Games - Socialization Level of Socialization: Initiates/interacts freely with care givers and peer - Diversional Time Diversional Time: television, has word searches in room - Assessment Assessment/Plan: Ms. Cross continues to make good progress in therapy. Patient negotiated steps and ambulated with son present to observe. Discussed recommendations for safety up on home discharge including single floor set up, supervision with steps, supervision with showering and supervision/assistance for mobility in community. Son reports agreement with POC. Daughter present for portion of training; presents with some anxiety regarding patient's discharge with concern about steps, gait and showering. Provided education to daughter as able and encouraged her to focus on the immediate future for safety and to take one step at a time in regards to patient's recovery process. PT recommends home discharge with intermittent supervision, home services and supervision in the community. - Provider Therapist: Shea Toney, [employer] #[id number] Nutrition - Current Diet Current Diet/ Supplement/ Feedings: Heart healthy diet - Appetite Percent Meal Consumed: 75-100% - Comments Comments: CARE POST CVA AND SAFETY PRECAUTIONS - Assessment/Goals/Time Frame Assessment/Goals/Time Frame: Pt at low nutritional risk. no goals. Follow-up due on 06/10/2018 - Provider Provider: Latricia Rothman RD Case Management - Psychosocial Assessment Support Systems: Lives with son Jayden [phone]. Supportive daughter Dania [phone] Psychological Interventions/Needs: Pt is alert and oriented with speech deficits ; Pt also with history of psychosis for which she follow Dr. Leija ( psychiatrist in community) Discharge Concerns: Pt's son will be moving into a new home with multiple stairs to negotiate Patient/Family Meeting: CM met with pt and rehab team; Spoke with pt's son Jayden and daughter Dania via telephone Intervention/Goal/Outcome:: 1. Tentative d/c date: 06/02/18 home with skilled homecare pending insurance LAD 05/27/18 2. Goal: Intermittent Supervision 3. DME : RW, commode, and shower chair with back and arms 4.Caregiver education tentatively scheduled with daughter Dania for 05/30/18 in PM and Sunday05/31/18 in AM; informed therapy - Discharge Plan Discharge Plan: Home with significant other/family, Home with services Home Services: Will refer to [facility] (pt does not have a preference for skilled homecare) - Provider Provider: BERLIN Gaxiola, [facility] License Number: [id number] Rehabilitation Plan - Treatment Plan Treatment Plan: Physical Therapy, Occupational Therapy, Speech, Dietary, Patient /Family Education - Discharge Plan Discharge to: Home (Had extensive family training)
--- NOTE | 2018-06-04 09:42 | CP.PCM.PN ---
Subjective - Date & Time of Evaluation Date of Evaluation: 06/04/18 Time of Evaluation: 09:41 - Subjective Subjective: Patient seen in the room some nausea. no vomiting, no chest pain discussed d/c home tomorrow and she will again go over last minute questions with the therapists family training has been done Objective - Vital Signs/Intake and Output Vital Signs (last 24 hours): Temp Pulse Resp BP Pulse Ox 98.2 F 95 H 20 124/64 95 06/03/18 20:01 06/03/18 20:01 06/03/18 20:01 06/03/18 20:01 06/03/18 20:01 - Medications Medications: Current Medications Acetaminophen (Tylenol 325mg Tab) 325 mg PO Q6 PRN PRN Reason: PAIN 1-10 Last Admin: 05/31/18 09:42 Dose: 325 mg Albuterol/Ipratropium (Duoneb 3 Mg/0.5 Mg (3 Ml) Ud) 3 ml IH RQ6 PRN PRN Reason: Shortness of Breath Alprazolam (Xanax) 0.5 mg PO DAILY PRN PRN Reason: Anxiety Aspirin (Aspirin Chewable) 81 mg PO DAILY [facility] Last Admin: 06/04/18 08:36 Dose: 81 mg Atorvastatin Calcium (Lipitor) 40 mg PO HS@2100 [facility] Last Admin: 06/03/18 20:19 Dose: 40 mg Bisacodyl (Dulcolax) 10 mg GA DAILY PRN PRN Reason: Constipation Clopidogrel Bisulfate (Plavix) 75 mg PO DAILY [facility] Last Admin: 06/04/18 08:36 Dose: 75 mg Enoxaparin Sodium (Lovenox) 40 mg SC DAILY [facility] PRN Reason: Protocol Last Admin: 06/04/18 08:37 Dose: 40 mg Ergocalciferol (Drisdol 50,000 Intl Units Cap) 1 cap PO Q7D [facility] Last Admin: 05/29/18 08:07 Dose: 1 cap Famotidine (Pepcid) 20 mg PO HS@2100 [facility] Last Admin: 06/03/18 20:19 Dose: 20 mg Home Med (Patient's Own Medication) 3 unit PO 1800 [facility] Last Admin: 06/03/18 17:39 Dose: 3 unit Home Med (Patient's Own Medication) 4 unit PO 1800 [facility] Last Admin: 06/03/18 17:39 Dose: 4 unit Home Med (Patient's Own Medication) 2 unit PO 1800 [facility] Last Admin: 06/03/18 17:39 Dose: 2 unit Home Med (Patient's Own Medication) 3 unit PO HS@2000 [facility] Last Admin: 06/03/18 20:18 Dose: 3 unit Magnesium Hydroxide (Milk Of Magnesia) 30 ml PO DAILY PRN PRN Reason: Constipation Last Admin: 06/01/18 17:22 Dose: 30 ml Magnesium Oxide (Mag-Ox) 400 mg PO BID [facility] Last Admin: 06/04/18 08:37 Dose: 400 mg Ondansetron HCl (Zofran Odt) 4 mg PO Q8H PRN PRN Reason: Nausea/Vomiting Senna/Docusate Sodium (Senokot S 50 Mg-8.6 Mg) 2 tab PO HS@2100 [facility] Last Admin: 06/03/18 20:19 Dose: Not Given - Labs Labs: 06/03/18 05:40 06/03/18 05:40
[2018-06-04] MEDS: BENZTROPINE MESYLATE 1 MG PO SCH (17:26)
[2018-06-04] MEDS: HALOPERIDOL 1 MG PO SCH (17:26)
[2018-06-04] MEDS: DOXEPIN HCL 50 MG PO SCH (17:26)
[2018-06-04] MEDS: ALPRAZOLAM 0.5 MG PO SCH (20:14)
[2018-06-04] MEDS: Docusate-Senna 50 mg-8.6 mg Tab PO SCH (20:22)
[2018-06-05] MEDS: Enoxaparin 40 mg Syringe SC SCH (08:38)
[2018-06-05] MEDS: Ergocalciferol 50,000 Intl Units Cap PO SCH (08:38)
[2018-06-05] MEDS: Magnesium Oxide 400 mg Tab UD PO SCH ×2 (08:39→17:11)
[2018-06-05 09:08] VITALS: BP 124/70; PULSE 77; RESP 18; TEMP 97.8; O2SAT 99
--- NOTE | 2018-06-05 12:05 | CP.PCM.DIS ---
Provider - Provider Date of Admission: 05/21/18 18:23 Attending physician: Enriqueta Brewer DO Consults: Dr Kwadwo Hannon Time Spent in preparation of Discharge (in minutes): 25 Diagnosis - Discharge Diagnosis (1) CVA (cerebral vascular accident) Status: Acute Comment: patient did well with PT/OT (2) COPD (chronic obstructive pulmonary disease) Status: Chronic Comment: stable (3) HTN (hypertension) Status: Chronic Comment: BP controlled without medications Hospital Course - Lab Results Lab Results: Most Recent Lab Values WBC 8.2 K/uL (4.8-10.8) 06/03/18 05:40 RBC 3.73 Mil/uL (3.80-5.20) L 06/03/18 05:40 Hgb 11.5 g/dL (12.0-16.0) L 06/03/18 05:40 Hct 34.6 % (34.0-47.0) 06/03/18 05:40 MCV 92.6 fl (81.0-99.0) 06/03/18 05:40 MCH 30.9 pg (27.0-31.0) 06/03/18 05:40 MCHC 33.4 g/dL (33.0-37.0) 06/03/18 05:40 RDW 13.5 % (11.5-14.5) 06/03/18 05:40 Plt Count 279 K/uL (130-400) 06/03/18 05:40 MPV 9.1 fl (7.2-11.7) 06/03/18 05:40 Neut % (Auto) 64.4 % (50.0-75.0) 06/03/18 05:40 Lymph % (Auto) 23.1 % (20.0-40.0) 06/03/18 05:40 [place] % (Auto) 8.5 % (0.0-10.0) 06/03/18 05:40 Eos % (Auto) 2.9 % (0.0-4.0) 06/03/18 05:40 Baso % (Auto) 1.1 % (0.0-2.0) 06/03/18 05:40 Neut # (Auto) 5.3 K/uL (1.8-7.0) 06/03/18 05:40 Lymph # (Auto) 1.9 K/uL (1.0-4.3) 06/03/18 05:40 [place] # (Auto) 0.7 K/uL (0.0-0.8) 06/03/18 05:40 Eos # (Auto) 0.2 K/uL (0.0-0.7) 06/03/18 05:40 Baso # (Auto) 0.1 K/uL (0.0-0.2) 06/03/18 05:40 Sodium 139 mmol/l (132-148) 06/03/18 05:40 Potassium 4.3 MMOL/L (3.6-5.0) 06/03/18 05:40 Chloride 107 mmol/L (98-107) 06/03/18 05:40 Carbon Dioxide 25 mmol/L (22-30) 06/03/18 05:40 Anion Gap 11 (10-20) 06/03/18 05:40 BUN 15 mg/dl (7-17) 06/03/18 05:40 Creatinine 0.7 mg/dl (0.7-1.2) 06/03/18 05:40 Est GFR ( Amer) > 60 06/03/18 05:40 Est GFR (Non-Af Amer) > 60 06/03/18 05:40 Random Glucose 98 mg/dL (65-105) 06/03/18 05:40 Hemoglobin A1c 5.6 % (4.2-6.5) 05/22/18 05:20 Calcium 9.2 mg/dL (8.4-10.2) 06/03/18 05:40 - Hospital Course Hospital Course: 73 yo female with previous history of CVA (2008), COPD, HTN and Psychosis was admitted at [facility] on 05/17/18 because of left facial dropped associated with dizziness. MRI showed acute right posterolateral basal ganglia infarct. She was transferred to [facility] and admitted in Acute Rehab when she was hemodynamically and neurologically stable on 05/21/18 for continuation of therapy. Patient did well and now is ready for discharge. Discharge Exam - Head Exam Head Exam: NORMAL INSPECTION - Eye Exam Eye Exam: absent: Scleral icterus - ENT Exam ENT Exam: Mucous Membranes Moist - Respiratory Exam Respiratory Exam: absent: Rales, Rhonchi, Wheezes, Respiratory Distress - Cardiovascular Exam Cardiovascular Exam: REGULAR RHYTHM, +S1, +S2 - GI/Abdominal Exam GI & Abdominal Exam: Soft. absent: Tenderness - Rectal Exam Rectal Exam: Deferred - Neurological Exam Neurological exam: Alert, Oriented x3 - Psychiatric Exam Psychiatric exam: Normal Affect - Skin Skin Exam: Dry, Intact Discharge Plan - Discharge Medications Prescriptions: Clopidogrel [Plavix] 75 mg PO DAILY #30 tab Ergocalciferol [Drisdol 50,000 Intl Units Cap] 50,000 iu PO Q7D #4 cap Rosuvastatin Calcium [Crestor] 20 mg PO HS #30 tab - Follow Up Plan Condition: GOOD Disposition: HOME/ ROUTINE Instructions: Stroke (DC), Doxepin (Systemic), Alprazolam, Aspirin, Atorvastatin, Benztropine, Clopidogrel, Ergocalciferol, Famotidine, Haloperidol , Magnesium Oxide, Docusate and Senna, Going Home on Blood Thinners
[2018-06-05] MEDS: HALOPERIDOL 1 MG PO SCH (17:11)
[2018-06-05] MEDS: DOXEPIN HCL 50 MG PO SCH (17:11)
[2018-06-05] MEDS: BENZTROPINE MESYLATE 1 MG PO SCH (17:11)
== END 2018-06-05 18:54 | disposition home health service (06) | DRG 57 ==
PROVIDERS: ADMIT Student in an Organized Health Care Education/Training Program; ATTEND Student in an Organized Health Care Education/Training Program
PROC: F07Z9FZ Gait Training/Functional Ambulation Treatment using Assistive, Adaptive, Supportive or Protective Equipment (ICD-10-PCS; principal; 2018-05-21)
PROC: F06Z6ZZ Communicative/Cognitive Integration Skills Treatment (ICD-10-PCS; 2018-05-21)
PROC: F08Z1FZ Dressing Techniques Treatment using Assistive, Adaptive, Supportive or Protective Equipment (ICD-10-PCS; 2018-05-21)
PROC: F07L6GZ Therapeutic Exercise Treatment of Musculoskeletal System - Lower Back / Lower Extremity using Aerobic Endurance and Conditioning Equipment (ICD-10-PCS; 2018-05-21)
PROC: F07 Physical Rehabilitation and Diagnostic Audiology, Rehabilitation, Motor Treatment (ICD-10-PCS; 2018-05-21)
PROC: F07K6GZ Therapeutic Exercise Treatment of Musculoskeletal System - Upper Back / Upper Extremity using Aerobic Endurance and Conditioning Equipment (ICD-10-PCS; 2018-05-21)
DX: I69.392 Facial weakness following cerebral infarction (principal); I69.354 Hemiplegia and hemiparesis following cerebral infarction affecting left non-dominant side; J44.9 Chronic obstructive pulmonary disease, unspecified; I10 Essential (primary) hypertension; Z86.73 Personal history of transient ischemic attack (TIA), and cerebral infarction without residual deficits; Z88.0 Allergy status to penicillin; I69.322 Dysarthria following cerebral infarction